=== PATIENT | female | born 1980 | race Caucasian/White ===

== ENCOUNTER 2019-02-16 07:25 | Inpatient (IN) ==
--- OUTSIDE RECORDS SUMMARY | 2019-02-16 07:27 | External Medical Summary | Continuity of Care Document ---
:1980 Author Name Jairon Neves, Provider Address Unavailable Unavailable , Care Team Providers Name Role Phone Case [email or web address] [email or web address] [email or web address], UNKNOWN Unavailable Unavailable Problems Active medical history not documented Allergies and Adverse Reactions Allergy history not documented Medications Medications not documented Procedures Procedures not documented Immunizations Immunizations not documented Plan of Treatment Planned Observations Planned Goals not documented Results No Known Results Results not documented Encounters Appointment; Primo Duenas DO 06-Jan-2009 11:30 Encounter Diagnosis: Problem not documented
--- OUTSIDE RECORDS SUMMARY | 2019-02-16 07:28 | External Medical Summary | Continuity of Care Document ---
:1980 Author Name Jairon Neves, Provider Address Unavailable Unavailable , Care Team Providers Name Role Phone Case [email or web address] [email or web address] [email or web address], UNKNOWN Unavailable Unavailable Problems Active medical [...]
[2019-02-16] MEDS ORDERED: LACTATED RINGER'S 1,000 ML IV ONE (07:46)
[2019-02-16] MEDS ORDERED: KETOROLAC (**for OR use only**) 30 MG/ML VIAL IV ONE (07:48)
--- NOTE | 2019-02-16 08:21 | XRay Report ---
XR chest 1V portable CLINICAL HISTORY: SEPSIS dyspnea COMPARISON STUDY: No previous studies for comparison. FINDINGS: The bones soft tissues and hemidiaphragms are normal. The cardiomediastinal silhouette is n ormal. The lungs are clear. The pulmonary vasculature is normal. IMPRESSION: Negative chest. ACT 112: Negative or not required by law. The above report was generated using voice recognition software. It may contain grammatical, syntax or spelling errors. Electronically signed by: Omar Rogers M.D. 02/16/2019 8:20 AM
[2019-02-16] MEDS ORDERED: KETOROLAC 30 MG/ML VIAL ONE (08:36)
[2019-02-16 08:39] LABS: Hematocrit (blood only) 32.8 % (37-47); Hemoglobin 11.2 g/dL (12.0-16.0); Mean Corpuscular Hemoglobin 30.7 pg (25-34); Mean Corpuscular Hgb Conc 34.1 g/dL (32-36); Mean Corpuscular Volume 89.9 fL (80-100); Mean Platelet Volume 8.7 fL (7.4-10.4); Platelet Count 254 K/uL (130-400); RDW Standard Deviation 46.5 fL (36.4-46.3); Red Blood Count 3.65 M/uL (4.2-5.4); White Blood Count 22.21 K/uL (4.8-10.8)
[2019-02-16 08:56] LABS: Appearance Urine Cloudy (Clear); Bacteria Urine Automated 4+ (Negative); Bilirubin Urine Negative (Negative); Blood Urine 3+ (Negative); Color Urine Yellow; Glucose Urine UA Negative (Negative); Ketones Urine Negative (Negative); Leukocyte Esterase Urine 2+ (Negative); Nitrite Urine Positive (Negative); Protein Urine 2+ (Negative); RBC Urine Automated >30 /hpf (0-4); Specific Gravity Urine 1.018 (1.000-1.030); Urobilinogen Urine Negative (Negative); WBC Urine Automated >30 /hpf (0-5)
[2019-02-16 08:57] LABS: iSTAT Creatinine 1.1 mg/dl (0.6-1.3); iSTAT Hemoglobin 11.6 g/dl (12.0-16.0); iSTAT Ionized Calcium 1.15 mmol/l (1.12-1.32)
[2019-02-16 08:59] LABS: Partial Thromboplastin Time 26.2 Seconds (21.0-31.0); Prothrombin Time 10.5 Seconds (9.0-12.0)
[2019-02-16 09:13] LABS: Alanine Aminotransferase 15 U/L (12-78); Albumin Level 2.4 gm/dl (3.4-5.0); Aspartate Aminotransferase 8 U/L (15-37); BUN Creatinine Ratio 16.7 (10-20); Blood Urea Nitrogen 19 mg/dl (7-18); Calcium 8.1 mg/dl (8.5-10.1); Carbon Dioxide 22 mmol/L (21-32); Chloride 108 mmol/L (98-107); Creatinine Clr Calc Pharmacy 65.1 ml/min; Est GFR (African American) 71.2; Est GFR (Non-African American) 61.4; Glucose 109 mg/dl (70-99); Magnesium 1.6 mg/dl (1.8-2.4); Potassium 3.1 mmol/L (3.5-5.1); Sodium 137 mmol/L (136-145)
[2019-02-16 09:19] LABS: Albumin Globulin Ratio 0.6 (0.9-2); Alkaline Phosphatase 136 U/L (45-117); Bilirubin,Total 0.5 mg/dl (0.2-1); Globulin 4.1 gm/dl (2.5-4.0); Total Protein 6.5 gm/dl (6.4-8.2); Troponin I < 0.015 ng/ml (0-0.045)
[2019-02-16 09:24] LABS: Influenza A virus by PCR Neg for Influ A (Neg); Influenza B virus by PCR Neg for Influ B (Neg)
[2019-02-16] MEDS ORDERED: IOVERSOL 100ml IV PRN (09:29)
[2019-02-16 09:41] LABS: Basophils # (auto) 0.01 K/uL (0-0.2); Eosinophils # (auto) 0.02 K/uL (0-0.5); Eosinophils % (auto) 0.1 %; Immature Granulocytes # (auto) 0.24 K/uL (0.00-0.02); Immature Granulocytes % (auto) 1.1 %; Lymphocytes # (auto) 0.82 K/uL (1.2-3.4); Lymphocytes % (auto) 3.7 %; Monocytes # (auto) 0.53 K/uL (0.11-0.59); Monocytes % (auto) 2.4 %; Neutrophils # (auto) 20.59 K/uL (1.4-6.5); Neutrophils % (auto) 92.7 %
[2019-02-16] MEDS ORDERED: cefTRIAXone SODIUM 1,000 MG/50 ML BAG IV STA (09:45)
--- NOTE | 2019-02-16 09:54 | CT Scan Report ---
CT SCAN OF THE CHEST, ABDOMEN, AND PELVIS WITH IV CONTRAST CLINICAL HISTORY: Dyspnea. Fever. Generalized abdominal pain. Back pain. COMPARISON STUDY: Chest x-ray dated 02/16/2019. Radiographs of the lumbar spine dated 613 and 14. TECHNIQUE: Following the IV administration of 93 of Optiray 320, CT scan of the chest, abdomen, and p rigo was performed from the thoracic inlet to the proximal femora. Images are reviewed in the axial, sagittal, and coronal planes. IV contrast was administered without complication. A dose lowering t echnique was utilized adhering to the principles of ALARA. CT DOSE: 902.03 mGy.cm FINDINGS: CHEST: Thyroid: Imaged portions of the thyroid gland are normal in size and attenuation. Thoracic aorta: The thoracic aorta is normal in caliber and demonstrates standard 3-vessel arch anato my. No dissection is seen. Pulmonary vasculature: The pulmonary trunk is normal in caliber. There are no filling defects identif ied in the central pulmonary vessels to indicate pulmonary embolus. Note that this examination was no t protocoled for evaluation of the pulmonary arteries. Heart: The heart is normal in size and without pericardial effusion. Lungs and pleural spaces: There is no airspace consolidation typical for pneumonia or pleural effusio n. The trachea and central airways are clear. Foci of atelectasis are present throughout both lungs. There are numerous ovoid low-attenuation posterior subpleural nodules identified in the thoracic deandre on bilaterally. These are seen on the left at T3-T4, T4-T5, T5-T6, and T6-T7. These are seen on the r ight at T5-T6, T6-T7, and T7-T8. The largest is on the left at the T5-T6 level, best seen on image #8 3 and measures 2.6 x 0.9 cm. Mediastinum: There is no mediastinal lymphadenopathy. Evelin: Clear. Axillae: There is no axillary lymphadenopathy. Bony thorax: No lytic or blastic lesions are identified. Soft tissues: A 1.3 cm sebaceous cyst is noted in the left upper back on image #51. ABDOMEN AND PELVIS: Liver: The contrast-enhanced liver is enlarged measuring 21.4 cm in length. The liver demonstrates di ffusely diminished attenuation consistent with hepatic steatosis. There is no intrahepatic or ductal dilatation. The hepatic veins and portal veins are patent. Gallbladder: Unremarkable. Spleen: The spleen is mildly enlarged measuring 14.0 cm in length. Pancreas: Unremarkable. Adrenal glands: Unremarkable. Kidneys: The contrast enhanced kidneys are normal in size and without hydronephrosis. Renal enhanceme nt is markedly heterogeneous bilaterally. There is significant bilateral perinephric and periureteric stranding. There are least 2 nonobstructing left renal calculi which measure up to 4 mm. No right re nal calculi are clearly seen on this contrast-enhanced examination. There are numerous (greater than 10) cortical hypodensities present within both kidneys measuring up to 1.9 cm. The largest are minima lly complex and do not meet criteria for simple cysts. Urothelial thickening and enhancement is ident ified within the renal collecting system bilaterally and involving both ureters. Abdominal vasculature: The abdominal aorta is normal in course and caliber. Bowel: There is no bowel obstruction. Mild fecal retention is noted in the colon. The appendix is we ll-visualized and normal. Peritoneum: There is no intraperitoneal free air or abdominal ascites. A naval piercing is noted. The re is a small fat-containing umbilical hernia. Lymphadenopathy: None. Pelvic viscera: The bladder wall is mildly thickened and there is pericystic inflammation. Question s eptated uterus. The adnexa are normal as visualized noting bilateral ovarian follicles. A moderate vo lume of free fluid is seen in the cul-de-sac. Skeletal structures: There is a mild chronic superior endplate compression deformity of L2. No lytic or blastic lesions are seen. IMPRESSION: 1. Findings are most consistent with cystitis and bilateral ascending urinary tract infection/pyelone phritis. 2. There are numerous (greater than 10) cortical hypodensities identified in both kidneys. These richy ure up to 1.9 cm, and although these may represent numerous and minimally complex cysts developing re nal abscesses would be impossible to exclude. Clinical correlation will be required. Follow-up with u rology is recommended. 3. Left-sided nephrolithiasis. 4. Hepatomegaly and hepatic steatosis. 5. Mild splenomegaly. 6. There is no airspace consolidation or pleural effusion. 7. There are numerous ovoid posterior subpleural soft tissue nodules identified in the thoracic regio n as above. The location and appearance is most typical for nerve sheath tumors such as neurofibromas or schwannomas. 8. A moderate volume of free fluid in the cul-de-sac is nonspecific and may be within physiologic mckee its. 9. Question septate uterus. 10. Additional findings as above. ACT 112: Positive. There are findings on this exam that require communication between the performing entity and the patient following Patient Test Result Information Act ([place] Act 112) guidelines. Electronically signed by: Jamie Garcia M.D. 02/16/2019 9:52 AM
[2019-02-16] MEDS ORDERED: POTASSIUM CHLORIDE 20 MEQ TABCR PO STA (10:26)
--- NOTE | 2019-02-16 10:27 | History & Physical Report ---
Date of Service February 16, 2019 Assessment & Plan (1) Pyelonephritis: This is a 39-year-old female with a PMH of chronic hepatitis C, mood disorder and history of IV drug abuse who presents with fever, chills and abdominal pain x10 days and was found to have acute pyelonephritis. -Temp of 37.9 C, normotensive, HR of 106, leukocytosis of 22 -Meets sepsis criteria per CMS but non-toxic in appearance, lactic acid negative, BP normal. Will monitor closely and expand empiric abx coverage if needed -UA grossly abnormal. Follow urine culture. Continue empiric Rocephin -CT abd/pelvis with findings are most consistent with cystitis and bilateral ascending urinary tract infection/pyelonephritis. There are numerous (greater than 10) cortical hypodensities identified in both kidneys. These measure up to 1.9 cm, and although these may represent numerous and minimally complex cysts developing renal abscesses would be impossible to exclude. Clinical correlation will be required. Follow-up with urology is recommended. -Will discuss with urology to consider inpatient consult vs close follow up in clinic -Continue IV fluids, pain control, antiemetics. Will avoid narcotic medications as much as possible due to h/o heroin abuse (2) Hypokalemia: Initial K of 3.1. Ordered for replacement -Continue to monitor with daily BMP (3) Recent URI: Prescribed a Z pack and prednisone taper 5 days ago, with last doses today -Lungs are clear on exam, CT chest negative, Flu A and B PCR is negative. No need to continue medications (4) Tobacco use disorder: 25 pack year history, smoking 1 PPD until recently. Currently on nicotine patch -Will continue. Interested in cessation, so counseling ordered History of Present Illness Chief Complaint: Fever, chills, abdominal pain Primary Care Provider: Fernando Gudino, This is a 39-year-old female with a PMH of chronic hepatitis C, mood disorder and history of IV drug abuse who presents with fever, chills and abdominal pain x10 days. Symptoms were present 10 days ago but then improved for a few days and returned 2 days ago. Endorses fever, chills, right upper quadrant pain that is stabbing and constant in nature with radiation wrapping around to her upper right back. Also endorses nausea and decreased appetite but denies vomiting. Was started on prednisone taper and azithromycin for presumed respiratory infection 5 days ago and has 1 dose left of each. Denies lightheadedness, visual changes, chest pain, palpitations, shortness of breath, change of urinary frequency or urgency, hematuria, pyuria, diarrhea or constipation. Was seen for an acute care visit yesterday was diagnosed with costochondritis and viral URI. Endorses history of heroin and cocaine use but not since 2013. Was also on methadone for time but no longer taking it. Endorses using daily ibuprofen but denies any other regular medication use. Allergies Allergy/AdvReac Type Severity Reaction Status Date / Time No Known Allergies Allergy Verified 02/16/19 08:06 Home Medications Home Medications Medication Instructions Recorded Confirmed Type azithromycin [Zithromax Z-Rosendo] 0 mg PO UD 02/16/19 02/16/19 History prednisone See Rx Instructions .ROUTE .COMPLEX 02/16/19 02/16/19 History Past Med/Surg History Medical History Hepatitis C (Chronic) Heroin abuse (Resolved) Mood disorder Surgical History H/O wrist surgery [place] teeth extracted (Resolved) Family History Other Stroke Social History Preferred Language: Romansh Communication Ability: Effective 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 Physical Exam Physical Exam: General Appearance: WD/WN, vitals as above, appears acutely ill with rigors, conversing easily, vital signs stable Head: normocephalic, atraumatic Eyes: normal inspection, PERRL, conjunctivae normal, anicteric sclerae ENT: external ear and nose normal, oropharynx normal Neck: trachea midline, no thyromegaly normal visual inspection Respiratory: normal respiratory effort, lungs clear to auscultation, no wheeze, rales, rhonchi. Normal insp/exp effort, no accessory muscle use Cardiovascular: regular rate, rhythm, no murmur, normal peripheral pulses. Vessels: no JVD or carotid bruit Chest: normal inspection of chest Abdomen/GI: normal bowel sounds, soft, RUQ pain, no guarding or hepatosplenomegaly : R CVA TTP. No L CVA TTP Extremities/Musculoskelatal: no cyanosis or clubbing, extremities motor strength 5/5 Neurologic: PERRL, EOMI, accommodation nl, no face palsy, no dysarthria, CN's II-XI intact bilaterally and moves all extremities Psychiatric: A+Ox3, anxious Skin: no rashes, normal color, warm/dry Results & Data Vital Signs (Past 12 Hours) Vital Signs Temp Pulse Pulse Resp BP BP Pulse Ox 02/16/19 10:04 89 16 110/62 97 02/16/19 07:28 37.9 C H 107 H 18 125/70 98 Laboratory Results Short CBC 02/16/19 Range/Units 08:17 WBC 22.21 H (4.8-10.8) K/uL Hgb 11.2 L (12.0-16.0) g/dL Hct 32.8 L (37-47) % Plt Count 254 (130-400) K/uL BMP 02/16/19 08:17 Sodium 137 Potassium 3.1 L Chloride 108 H Carbon Dioxide 22 BUN 19 H Creatinine 1.12 Glucose 109 H Calcium 8.1 L Cardiac Enzymes 02/16/19 Range/Units 08:17 Troponin I < 0.015 (0-0.045) ng/ml Liver Function 02/16/19 Range/Units 08:17 Total Bilirubin 0.5 (0.2-1) mg/dl AST 8 L (15-37) U/L ALT 15 (12-78) U/L Alkaline Phosphatase 136 H (45-117) U/L Albumin 2.4 L (3.4-5.0) gm/dl Urine 02/16/19 Range/Units 08:00 Urine Color Yellow Urine Appearance Cloudy A (Clear) Urine pH 5.0 (4.5-7.5) Ur Specific Lee 1.018 (1.000-1.030) Urine Protein 2+ H (Negative) Urine Glucose (UA) Negative (Negative) Diagnostic Findings CXR: IMPRESSION: Negative chest. CT chest/CT abd/pelvis: IMPRESSION: 1. Findings are most consistent with cystitis and bilateral ascending urinary tract infection/pyelonephritis. 2. There are numerous (greater than 10) cortical hypodensities identified in both kidneys. These measure up to 1.9 cm, and although these may represent numerous and minimally complex cysts developing renal abscesses would be impossible to exclude. Clinical correlation will be required. Follow-up with urology is recommended. 3. Left-sided nephrolithiasis. 4. Hepatomegaly and hepatic steatosis. 5. Mild splenomegaly. 6. There is no airspace consolidation or pleural effusion. 7. There are numerous ovoid posterior subpleural soft tissue nodules identified in the thoracic region as above. The location and appearance is most typical for nerve sheath tumors such as neurofibromas or schwannomas. 8. A moderate volume of free fluid in the cul-de-sac is nonspecific and may be within physiologic limits. 9. Question septate uterus. Code Status & VTE Plan VTE Prophylaxis Plan VTE Prophylaxis will be ordered: Yes Supervising Physician Co-Signing Physician Notes Pt was seen and examined. Agreed with Ruby BOLIVAR exam, assessment and plan. 39-year-old female with a PMH of chronic hepatitis C, mood disorder and history of IV drug abuse who presents with fever, chills and abdominal pain for the last few days. Pt said that she was seen at [facility] and was treated for URI where she was given prednisone and Zithromax. Pt said that she was seen by [facility] few months ago for tenderness around her mid lower abdomen/pelvis. She said that she had her period [address] abd/pelvis showed findings that are most consistent with cystitis and bilateral ascending urinary tract infection/pyelonephritis. There are numerous (greater than 10) cortical hypodensities identified in both kidneys. These measure up to 1.9 cm, and although these may represent numerous and minimally complex cysts developing renal abscesses would be impossible to exclude. WBC on admission 22K, Temp 37.9 and potassium 3. UA positive for leukocytes, nitrite and bacteria. Urine and blood cx collected in the ER. Received Rocephin IV 1g in the ER, will continue IV abx. Continue Pain management and IVF fluid. Monitor CBC and BMP. MD Shira
[2019-02-16] MEDS ORDERED: POLYETHYLENE (MIRALAX) 17 GM PACK PO PRN (11:21)
[2019-02-16] MEDS ORDERED: ACETAMINOPHEN 325 MG TAB PO PRN (11:21)
[2019-02-16] MEDS ORDERED: ONDANSETRON INJ 2 MG/ML 2 ML VIAL IV PRN (11:21)
[2019-02-16] MEDS: SODIUM CHLORIDE 0.9% 1000ML 1,000 ML IV SCH ×2 (12:08→20:23)
[2019-02-16] MEDS: ACETAMINOPHEN 500 MG TAB PO PRN ×2 (12:10→20:22)
--- NOTE | 2019-02-16 13:06 | Emergency Department Note ---
Entered by Rose Ramsey acting as a scribe for History of Present Illness General Chief complaint: Abdominal Pain Stated complaint: BACK PAIN,SICK SINCE LAST SAT BEEN TO [facility] Source: patient History of Present Illness Onset (ago): day(s) 10 Location: head (general) Pain Consistency: + other (persistent ) Maximum Pain Intensity: 10 Quality: + other (weakness) Associated symptoms: + chest pain, + cough, + fever/chills (now resolved), + loss of appetite, + shortness of breath and + other (positive feels like "lungs are burning"; positive low back pain; positive runny nose; positive hoarse voice) Treatments prior to arrival: other (Zithromax; Prednisone) The patient is a 39 year old female who presents to the Emergency Room with complaints of persistent weakness that began last Friday, 10 days prior to arrival. The patient states that she had fevers and chills at the beginning, but states that these resolved by [place], 6 days ago. The patient states that during this time she has felt like her "lungs are burning". She states that she began having chest pain and back pain 6 days ago. The patient states that her low back pain is exacerbated with movement. The patient states that she has had loss of appetite during this time. She reports cough, runny nose, hoarse voice, and shortness of breath during this time. The patient states that she saw her PCP 4 days ago and was given Zithromax and Prednisone. She denies urinary symptoms and weakness or numbness in her arms and legs. The patient admits to IV drug use 4 years ago. Home Medications Home Medications Medication Instructions Recorded Confirmed Type azithromycin [Zithromax Z-Rosendo] 0 mg PO UD 02/16/19 02/16/19 History prednisone See Rx Instructions .ROUTE .COMPLEX 02/16/19 02/16/19 History Allergies Allergy/AdvReac Type Severity Reaction Status Date / Time No Known Allergies Allergy Verified 02/16/19 08:06 Past Med/Surg History Medical History Hepatitis C (Chronic) Heroin abuse (Resolved) Mood disorder Surgical History H/O wrist surgery [place] teeth extracted (Resolved) Family History Other Stroke Social History Preferred Language: Italian Communication Ability: Effective Label Coder Required: No Beliefs That Will Affect Care: None Current Living Situation: Family and Significant Other Other Information That Helps Us Care for You: No Feels Safe at Home: Yes Safety Concerns: Feels Safe At This Time Smoking Status: Current every day smoker Tobacco Type: cigarettes ; Cigarettes Per Day: 20 ; Do You Dip or Chew Tobacco: No ; Second Hand Exposure: No ; Tobacco Cessation Education Requested by Patient: No Hx Alcohol Use: No Hx Substance Use: No Review of Systems See HPI for pertinent positives & negatives. and A total of 10 systems reviewed and were otherwise negative Physical Exam Vital Signs Vital Signs - 24 hr 02/16/19 07:28 02/16/19 10:04 Temperature 37.9 C H Temperature Source Oral Pulse Rate 107 H Pulse Rate [Finger] 89 Respiratory Rate 18 16 Respiratory Effort / Characteristics Non-Labored Respiratory Depth Normal Blood Pressure 125/70 Blood Pressure [Right Arm] 110/62 Blood Pressure Mean 88 Blood Pressure Mean [Right Arm] 78 Blood Pressure Position Sitting Pulse Oximetry 98 97 Oxygen Delivery Method Room Air Sepsis Recent Fever Within 48 Hours Yes Sepsis New/Unexplained Change in Mental Status No Sepsis Action Taken by Nursing No Action Required GENERAL: Sitting up in bed, disheveled, nontoxic, no acute distress, with a hoarse voice, and intermittent cough. EYE EXAM: normal conjunctiva OROPHARYNX: no exudate, no erythema, lips, buccal mucosa, and tongue normal and mucous membranes are moist NECK: supple, no nuchal rigidity, no adenopathy, non-tender LUNGS: Clear to auscultation. Normal chest wall mechanics HEART: Tachycardic rate, regular rhythm. No murmurs, S1 normal and S2 normal ABDOMEN: abdomen soft, minimal tenderness in the epigastric region, normo-active bowel sounds, no masses, no rebound or guarding. BACK: Bilateral paraspinal tenderness in the lumbar region. Back is symmetrical on inspection and there is no deformity, no midline tenderness, no CVA tenderness. SKIN: no rashes and no bruising UPPER EXTREMITIES: upper extremities are grossly normal. LOWER EXTREMITIES: No pitting edema. NEURO EXAM: Normal sensorium, cranial nerves II-XII grossly intact, normal speech, no gross weakness of arms, no gross weakness of legs. Course Course ED COURSE: Vital signs were reviewed and showed tachycardia. The patients medical record was reviewed The above diagnostic studies were performed and reviewed. ED treatments and interventions as stated above. 0739: The patient was evaluated in room A12B. A complete history and physical examination was performed. 0945: I checked on and updated the patient. 1019: Upon reevaluation, the patient is .I discussed my findings with the patient and she understands and agrees with the treatment plan. Based on the patients age, coexisting illnesses, exam and lab findings the decision to treat as an inpatient was made. The patient remained stable while under my care. 1020: The patient will be evaluated for further management. I discussed the case with Dr. Penny Hospitalist who accepts the patient for further evaluation. Administered Medications Acetaminophen (Tylenol) 1,000 mg PO Q8H PRN PRN Reason: pain or fever Stop: 03/18/19 11:57 Last Admin: 02/16/19 12:10 Dose: 1,000 mg Documented by: [id number] Sodium Chloride (Nss 1000ml) 1,000 mls @ 125 mls/hr IV .Q8H VANI Stop: 03/18/19 11:49 Last Admin: 02/16/19 12:08 Dose: 125 mls/hr Documented by: [id number] Discontinued Medications Lactated Ringer's (Lr) 1,000 mls @ 999 mls/hr IV .Q1H1M ONE Stop: 02/16/19 08:46 Last Infusion: 02/16/19 09:46 Dose: 0 mls/hr Documented by: [id number] Admin: 02/16/19 08:43 Dose: 999 mls/hr Documented by: [id number] Ceftriaxone Sodium (Rocephin) 1,000 mg in 50 mls @ 100 mls/hr IV NOW STA Stop: 02/16/19 10:14 Last Infusion: 02/16/19 10:31 Dose: 0 mls/hr Documented by: [id number] Admin: 02/16/19 10:02 Dose: 100 mls/hr Documented by: [id number] Ioversol (Optiray 320 100ml) 93 ml IV ONCE PRN PRN Reason: Interaction Checking Stop: 02/20/19 09:28 Last Admin: 02/16/19 09:30 Dose: 93 ml Documented by: [id number] Ketorolac Tromethamine (Toradol (For Or Use Only)) 30 mg IV ONE ONE Stop: 02/16/19 07:49 Last Admin: 02/16/19 08:43 Dose: Not Given Documented by: [id number] Ketorolac Tromethamine (Toradol) Confirm Administered Dose 30 mg .ROUTE .STK-MED ONE Stop: 02/16/19 08:37 Last Admin: 02/16/19 08:43 Dose: 30 mg Documented by: [id number] Potassium Chloride (Klor-Con M20) 40 meq PO NOW STA Stop: 02/16/19 10:27 Last Admin: 02/16/19 11:13 Dose: 40 meq Documented by: [id number] Medical Decision Making Differential Diagnosis Differential diagnosis includes etiologies such as sepsis, UTI, pneumonia, metabolic, electrolyte abnormalities, cardiac sources, intracerebral event, toxicologic, neurologic, as well as others were entertained. Medical Records Attestation: I reviewed the patient's medical records. Home Medications Current Medication List: was personally reviewed by me Laboratory Data Result diagrams: 02/16/19 08:17 02/16/19 08:17 Lab Results 02/16/19 02/16/19 02/16/19 Range/Units 08:00 08:17 08:17 WBC 22.21 H (4.8-10.8) K/uL RBC 3.65 L (4.2-5.4) M/uL Hgb 11.2 L (12.0-16.0) g/dL POC Hgb (12.0-16.0) g/dl Hct 32.8 L (37-47) % POC Hct (37-47) % MCV 89.9 (80-100) fL MCH 30.7 (25-34) pg MCHC 34.1 (32-36) g/dL RDW Std Deviation 46.5 H (36.4-46.3) fL RDW Coeff of Erlinda 14.0 (11.5-14.5) % Plt Count 254 (130-400) K/uL MPV 8.7 (7.4-10.4) fL Immature Gran % (Auto) 1.1 % Neut % (Auto) 92.7 % Lymph % (Auto) 3.7 % [place] % (Auto) 2.4 % Eos % (Auto) 0.1 % Baso % (Auto) 0.0 % Immature Gran # (Auto) 0.24 H (0.00-0.02) K/uL Neut # (Auto) 20.59 H (1.4-6.5) K/uL Lymph # (Auto) 0.82 L (1.2-3.4) K/uL [place] # (Auto) 0.53 (0.11-0.59) K/uL Eos # (Auto) 0.02 (0-0.5) K/uL Baso # (Auto) 0.01 (0-0.2) K/uL PT 10.5 (9.0-12.0) Seconds INR 1.0 (0.9-1.1) APTT 26.2 (21.0-31.0) Seconds PTT Ratio 1.0 POC Sodium (135-144) mEq/L Sodium (136-145) mmol/L POC Potassium (3.3-5.0) mEq/L Potassium (3.5-5.1) mmol/L POC Chloride (101-112) mEq/L Chloride (98-107) mmol/L Carbon Dioxide (21-32) mmol/L POC Total CO2 (24-31) mEq/l Anion Gap (3-11) POC Anion Gap (16-25) mmol/L POC BUN (7-18) mg/dl BUN (7-18) mg/dl Creatinine (0.6-1.2) mg/dl POC Creatinine (0.6-1.3) mg/dl Est Cr Clr Drug Dosing ml/min Est GFR ( Amer) Est GFR (Non-Af Amer) BUN/Creatinine Ratio (10-20) Glucose (70-99) mg/dl POC Glucose (other) (70-99) mg/dl Lactate (0.4-2.0) mmol/L Calcium (8.5-10.1) mg/dl POC Ioniz Calcium Jerald (1.12-1.32) mmol/l Magnesium (1.8-2.4) mg/dl Total Bilirubin (0.2-1) mg/dl AST (15-37) U/L ALT (12-78) U/L Alkaline Phosphatase (45-117) U/L Troponin I (0-0.045) ng/ml Total Protein (6.4-8.2) gm/dl Albumin (3.4-5.0) gm/dl Globulin (2.5-4.0) gm/dl Albumin/Globulin Ratio (0.9-2) Urine Color Yellow Urine Appearance Cloudy A (Clear) Urine pH 5.0 (4.5-7.5) Ur Specific Dozier 1.018 (1.000-1.030) Urine Protein 2+ H (Negative) Urine Glucose (UA) Negative (Negative) Urine Ketones Negative (Negative) Urine Blood 3+ H (Negative) Urine Nitrite Positive A (Negative) Urine Bilirubin Negative (Negative) Urine Urobilinogen Negative (Negative) Ur Leukocyte Esterase 2+ H (Negative) Urine WBC (Auto) >30 H (0-5) /hpf Urine RBC (Auto) >30 H (0-4) /hpf U Hyaline Cast (Auto) 1-5 (0-5) /lpf U Epithel Cells (Auto) 10-20 H (0-5) /lpf Urine Bacteria (Auto) 4+ H (Negative) Influenza Type A (PCR) (Neg) Influenza Type B (PCR) (Neg) 02/16/19 02/16/19 02/16/19 Range/Units 08:17 08:25 08:40 WBC (4.8-10.8) K/uL RBC (4.2-5.4) M/uL Hgb (12.0-16.0) g/dL POC Hgb (12.0-16.0) g/dl Hct (37-47) % POC Hct (37-47) % MCV (80-100) fL MCH (25-34) pg MCHC (32-36) g/dL RDW Std Deviation (36.4-46.3) fL RDW Coeff of Erlinda (11.5-14.5) % Plt Count (130-400) K/uL MPV (7.4-10.4) fL Immature Gran % (Auto) % Neut % (Auto) % Lymph % (Auto) % [place] % (Auto) % Eos % (Auto) % Baso % (Auto) % Immature Gran # (Auto) (0.00-0.02) K/uL Neut # (Auto) (1.4-6.5) K/uL Lymph # (Auto) (1.2-3.4) K/uL [place] # (Auto) (0.11-0.59) K/uL Eos # (Auto) (0-0.5) K/uL Baso # (Auto) (0-0.2) K/uL PT (9.0-12.0) Seconds INR (0.9-1.1) APTT (21.0-31.0) Seconds PTT Ratio POC Sodium (135-144) mEq/L Sodium 137 (136-145) mmol/L POC Potassium (3.3-5.0) mEq/L Potassium 3.1 L (3.5-5.1) mmol/L POC Chloride (101-112) mEq/L Chloride 108 H (98-107) mmol/L Carbon Dioxide 22 (21-32) mmol/L POC Total CO2 (24-31) mEq/l Anion Gap 7.0 (3-11) POC Anion Gap (16-25) mmol/L POC BUN (7-18) mg/dl BUN 19 H (7-18) mg/dl Creatinine 1.12 (0.6-1.2) mg/dl POC Creatinine (0.6-1.3) mg/dl Est Cr Clr Drug Dosing 65.1 ml/min Est GFR ( Amer) 71.2 Est GFR (Non-Af Amer) 61.4 BUN/Creatinine Ratio 16.7 (10-20) Glucose 109 H (70-99) mg/dl POC Glucose (other) (70-99) mg/dl Lactate 1.2 (0.4-2.0) mmol/L Calcium 8.1 L (8.5-10.1) mg/dl POC Ioniz Calcium Jerald (1.12-1.32) mmol/l Magnesium 1.6 L (1.8-2.4) mg/dl Total Bilirubin 0.5 (0.2-1) mg/dl AST 8 L (15-37) U/L ALT 15 (12-78) U/L Alkaline Phosphatase 136 H (45-117) U/L Troponin I < 0.015 (0-0.045) ng/ml Total Protein 6.5 (6.4-8.2) gm/dl Albumin 2.4 L (3.4-5.0) gm/dl Globulin 4.1 H (2.5-4.0) gm/dl Albumin/Globulin Ratio 0.6 L (0.9-2) Urine Color Urine Appearance (Clear) Urine pH (4.5-7.5) Ur Specific Dozier (1.000-1.030) Urine Protein (Negative) Urine Glucose (UA) (Negative) Urine Ketones (Negative) Urine Blood (Negative) Urine Nitrite (Negative) Urine Bilirubin (Negative) Urine Urobilinogen (Negative) Ur Leukocyte Esterase (Negative) Urine WBC (Auto) (0-5) /hpf Urine RBC (Auto) (0-4) /hpf U Hyaline Cast (Auto) (0-5) /lpf U Epithel Cells (Auto) (0-5) /lpf Urine Bacteria (Auto) (Negative) Influenza Type A (PCR) Neg for Influ A (Neg) Influenza Type B (PCR) Neg for Influ B (Neg) 02/16/19 Range/Units 08:44 WBC (4.8-10.8) K/uL RBC (4.2-5.4) M/uL Hgb (12.0-16.0) g/dL POC Hgb 11.6 L (12.0-16.0) g/dl Hct (37-47) % POC Hct 34 L (37-47) % MCV (80-100) fL MCH (25-34) pg MCHC (32-36) g/dL RDW Std Deviation (36.4-46.3) fL RDW Coeff of Erlinda (11.5-14.5) % Plt Count (130-400) K/uL MPV (7.4-10.4) fL Immature Gran % (Auto) % Neut % (Auto) % Lymph % (Auto) % [place] % (Auto) % Eos % (Auto) % Baso % (Auto) % Immature Gran # (Auto) (0.00-0.02) K/uL Neut # (Auto) (1.4-6.5) K/uL Lymph # (Auto) (1.2-3.4) K/uL [place] # (Auto) (0.11-0.59) K/uL Eos # (Auto) (0-0.5) K/uL Baso # (Auto) (0-0.2) K/uL PT (9.0-12.0) Seconds INR (0.9-1.1) APTT (21.0-31.0) Seconds PTT Ratio POC Sodium 139 (135-144) mEq/L Sodium (136-145) mmol/L POC Potassium 3.0 L (3.3-5.0) mEq/L Potassium (3.5-5.1) mmol/L POC Chloride 104 (101-112) mEq/L Chloride (98-107) mmol/L Carbon Dioxide (21-32) mmol/L POC Total CO2 25 (24-31) mEq/l Anion Gap (3-11) POC Anion Gap 14.0 L (16-25) mmol/L POC BUN 19 H (7-18) mg/dl BUN (7-18) mg/dl Creatinine (0.6-1.2) mg/dl POC Creatinine 1.1 (0.6-1.3) mg/dl Est Cr Clr Drug Dosing ml/min Est GFR ( Amer) Est GFR (Non-Af Amer) BUN/Creatinine Ratio (10-20) Glucose (70-99) mg/dl POC Glucose (other) 107 H (70-99) mg/dl Lactate (0.4-2.0) mmol/L Calcium (8.5-10.1) mg/dl POC Ioniz Calcium Jerald 1.15 (1.12-1.32) mmol/l Magnesium (1.8-2.4) mg/dl Total Bilirubin (0.2-1) mg/dl AST (15-37) U/L ALT (12-78) U/L Alkaline Phosphatase (45-117) U/L Troponin I (0-0.045) ng/ml Total Protein (6.4-8.2) gm/dl Albumin (3.4-5.0) gm/dl Globulin (2.5-4.0) gm/dl Albumin/Globulin Ratio (0.9-2) Urine Color Urine Appearance (Clear) Urine pH (4.5-7.5) Ur Specific [place]zier (1.000-1.030) Urine Protein (Negative) Urine Glucose (UA) (Negative) Urine Ketones (Negative) Urine Blood (Negative) Urine Nitrite (Negative) Urine Bilirubin (Negative) Urine Urobilinogen (Negative) Ur Leukocyte Esterase (Negative) Urine WBC (Auto) (0-5) /hpf Urine RBC (Auto) (0-4) /hpf U Hyaline Cast (Auto) (0-5) /lpf U Epithel Cells (Auto) (0-5) /lpf Urine Bacteria (Auto) (Negative) Influenza Type A (PCR) (Neg) Influenza Type B (PCR) (Neg) Imaging Data Radiologist's Impression: Radiology results as stated below per my review and the radiologist's interpretation: XR chest 1V portable CLINICAL HISTORY: SEPSIS dyspnea COMPARISON STUDY: No previous studies for comparison. FINDINGS: The bones soft tissues and hemidiaphragms are normal. The cardio mediastinal silhouette is normal. The lungs are clear. The pulmonary vasculature is normal. IMPRESSION: Negative chest. ACT 112: Negative or not required by law. The above report was generated using voice recognition software. It may contain grammatical, syntax or spelling errors. Electronically signed by: Omar Rogers M.D. 02/16/2019 8:[address] SCAN OF THE CHEST, ABDOMEN, AND PELVIS WITH IV CONTRAST CLINICAL HISTORY: Dyspnea. Fever. Generalized abdominal pain. Back pain. COMPARISON STUDY: Chest x-ray dated 02/16/2019. Radiographs of the lumbar spine dated 613 and 14. TECHNIQUE: Following the IV administration of 93 of Optiray 320, CT scan of the chest, abdomen, and pelvis was performed from the thoracic inlet to the proximal femora. Images are reviewed in the axial, sagittal, and coronal planes. IV contrast was administered without complication. A dose lowering technique was utilized adhering to the principles of ALARA. CT DOSE: 902.03 mGy.cm FINDINGS: CHEST: Thyroid: Imaged portions of the thyroid gland are normal in size and attenuation. Thoracic aorta: The thoracic aorta is normal in caliber and demonstrates stand lala 3-vessel arch anatomy. No dissection is seen. Pulmonary vasculature: The pulmonary trunk is normal in caliber. There are no filling defects identified in the central pulmonary vessels to indicate pulmonary embolus. Note that this examination was not protocoled for evaluation of the pulmonary arteries. Heart: The heart is normal in size and without pericardial effusion. Lungs and pleural spaces: There is no airspace consolidation typical for pneumonia or pleural effusion. The trachea and central airways are clear. Foci of atelectasis are present throughout both lungs. There are numerous ovoid low- attenuation posterior subpleural nodules identified in the thoracic region bilaterally. These are seen on the left at T3-T4, T4-T5, T5-T6, and T6-T7. These are seen on the right at T5-T6, T6-T7, and T7-T8. The largest is on the left at the T5-T6 level, best seen on image #83 and measures 2.6 x 0.9 cm. Mediastinum: There is no mediastinal lymphadenopathy. Evelin: Clear. Axillae: There is no axillary lymphadenopathy. Bony thorax: No lytic or blastic lesions are identified. Soft tissues: A 1.3 cm sebaceous cyst is noted in the left upper back on image #51. ABDOMEN AND PELVIS: Liver: The contrast-enhanced liver is enlarged measuring 21.4 cm in length. The liver demonstrates diffusely diminished attenuation consistent with hepatic steatosis. There is no intrahepatic or ductal dilatation. The hepatic veins and portal veins are patent. Gallbladder: Unremarkable. Spleen: The spleen is mildly enlarged measuring 14.0 cm in length. Pancreas: Unremarkable. Adrenal glands: Unremarkable. Kidneys: The contrast enhanced kidneys are normal in size and without hydronephrosis. Renal enhancement is markedly heterogeneous bilaterally. There is significant bilateral perinephric and periureteric stranding. There are least 2 nonobstructing left renal calculi which measure up to 4 mm. No right renal calculi are clearly seen on this contrast-enhanced examination. There are numerous (greater than 10) cortical hypodensities present within both kidneys measuring up to 1.9 cm. The largest are minimally complex and do not meet criteria for simple cysts. Urothelial thickening and enhancement is identified within the renal collecting system bilaterally and involving both ureters. Abdominal vasculature: The abdominal aorta is normal in course and caliber. Bowel: There is no bowel obstruction. Mild fecal retention is noted in the colon. The appendix is well-visualized and normal. Peritoneum: There is no intraperitoneal free air or abdominal ascites. A naval piercing is noted. There is a small fat-containing umbilical hernia. Lymphadenopathy: None. Pelvic viscera: The bladder wall is mildly thickened and there is pericystic inflammation. Question septated uterus. The adnexa are normal as visualized noting bilateral ovarian follicles. A moderate volume of free fluid is seen in the cul-de-sac. Skeletal structures: There is a mild chronic superior endplate compression deformity of L2. No lytic or blastic lesions are seen. IMPRESSION: 1. Findings are most consistent with cystitis and bilateral ascending urinary tract infection/pyelonephritis. 2. There are numerous (greater than 10) cortical hypodensities identified in both kidneys. These measure up to 1.9 cm, and although these may represent numerous and minimally complex cysts developing renal abscesses would be impossible to exclude. Clinical correlation will be required. Follow-up with urology is recommended. 3. Left-sided nephrolithiasis. 4. Hepatomegaly and hepatic steatosis. 5. Mild splenomegaly. 6. There is no airspace consolidation or pleural effusion. 7. There are numerous ovoid posterior subpleural soft tissue nodules identified in the thoracic region as above. The location and appearance is most typical for nerve sheath tumors such as neurofibromas or schwannomas. 8. A moderate volume of free fluid in the cul-de-sac is nonspecific and may be within physiologic limits. 9. Question septate uterus. 10. Additional findings as above. ACT 112: Positive. There are findings on this exam that require communication between the performing entity and the patient following Patient Test Result Information Act ([place] Act 112) guidelines. Electronically signed by: Jamie Garcia M.D. 02/16/2019 9:52 AM ECG Data Attestation: I personally reviewed and interpreted this ECG as follows: Indication: + chest pain Rate (beats per minute): 84 Rhythm: + sinus rhythm ECG Intervals/blocks: + Normal QT-c ECG [place]: + Normal ECG Findings: no PVCs Blood Pressure Blood Pressure Findings: Normal blood pressure MDM Narrative Patient is a 39-year-old female who presents the ER for fevers back pain muscle aches shaking and chills. IV was established blood work was obtained and showed leukocytosis of 22,000. Hemoglobin 11.2 thousand. INR was unremarkable. BMP with mild hypokalemia. Lactic acid was unremarkable. LFTs and magnesium and troponin were unremarkable. UA with nitrates white cells epithelials and bacteria. CT of the chest and abdomen pelvis shows pyelonephritis with questionable abscesses versus renal cyst. Influenza was unremarkable. Patient was given IV fluids and IV Rocephin. Updated bedside. Discussed with the hospitalist admitted for sepsis secondary to pyelonephritis. Do favor that the leukocytosis is a combination of the infection and steroids which were recently prescribed. Impression & Plan Sepsis, Pyelonephritis, Back pain Discharge Plan Visit Data *Final* Discharge Date/Time: 02/16/19 11:10 Chief Complaint: Abdominal Pain Stated Complaint: BACK PAIN,SICK SINCE LAST SAT BEEN TO [facility] Provider: David Asher Discharge Problem: Sepsis, Pyelonephritis, Back pain Patient Disposition: Admitted As Inpatient Discharge Instructions Interventions: ED Discharge Assessment Last Done: 02/16/19 11:10 The scribe's documentation has been prepared under my direction and personally reviewed by me in its entirety. I confirm that the note above accurately reflects all work, treatment, procedures, and medical decision making performed by me.
[2019-02-16] MEDS: KETOROLAC TROMETHAMINE 15 MG/ML VIAL IV PRN ×2 (16:56→23:02)
[2019-02-16 17:36] LABS: Amphetamines+Metham, Urine Neg (Neg); Barbiturates, Urine Neg (Neg); Benzodiazepine, Urine Neg (Neg); Cocaine, Urine Neg (Neg); MDMA (Ecstacy), Urine Neg (Neg); Methadone, Urine Neg (Neg); Opiate, Urine Neg (Neg); Phencyclidine, Urine Neg (Neg)
[2019-02-17] MEDS: SODIUM CHLORIDE 0.9% 1000ML 1,000 ML IV SCH ×3 (03:56→20:59)
[2019-02-17] MEDS: ACETAMINOPHEN 500 MG TAB PO PRN ×3 (04:28→21:42)
[2019-02-17 06:38] LABS: Hematocrit (blood only) 28.7 % (37-47); Hemoglobin 9.8 g/dL (12.0-16.0); Mean Corpuscular Hemoglobin 30.3 pg (25-34); Mean Corpuscular Hgb Conc 34.1 g/dL (32-36); Mean Corpuscular Volume 88.9 fL (80-100); Mean Platelet Volume 9.4 fL (7.4-10.4); Platelet Count 250 K/uL (130-400); RDW Coefficient of Variation 14.1 % (11.5-14.5); RDW Standard Deviation 45.9 fL (36.4-46.3); Red Blood Count 3.23 M/uL (4.2-5.4); White Blood Count 27.32 K/uL (4.8-10.8)
[2019-02-17 07:00] LABS: BUN Creatinine Ratio 13.3 (10-20); Calcium 7.5 mg/dl (8.5-10.1); Creatinine Clr Calc Pharmacy 61.2 ml/min; Est GFR (African American) 66.1; Est GFR (Non-African American) 57.1; Potassium 3.2 mmol/L (3.5-5.1)
--- NOTE | 2019-02-17 07:56 | Hospitalist Progress Note ---
Date of Service February 17, 2019 Assessment & Plan (1) Pyelonephritis: GN bacilli Bacteremia This is a 39-year-old female with a PMH of chronic hepatitis C, mood disorder and history of IV drug abuse who presents with fever, chills and abdominal pain x10 days and was found to have acute pyelonephritis. Blood cltx positive for GNR. -On admission: Temp of 37.9 C, normotensive, HR of 106, leukocytosis of 22K -Meets sepsis criteria per CMS but non-toxic in appearance, lactic acid negative, BP normal. Will monitor closely and expand empiric abx coverage if needed -UA grossly abnormal. Urine culture - positive for GNR, Continue empiric Rocephin but increase to 2g -CT abd/pelvis with findings are most consistent with cystitis and bilateral ascending urinary tract infection/pyelonephritis. There are numerous (greater than 10) cortical hypodensities identified in both kidneys. These measure up to 1.9 cm, and although these may represent numerous and minimally complex cysts developing renal abscesses would be impossible to exclude. Clinical correlation will be required. Follow-up with urology is recommended. - urology consulted - Blood cltx positive for GNR, will increase Rocephin to 2g, cont. to closely monitor, will order Echo to r/o endocarditis, will repeat blood cltx - Continue IV fluids, pain control, antiemetics. Will avoid narcotic medications as much as possible due to h/o heroin abuse - has lower and mid back pain b/l, will provide lidocaine patch (2) Hypokalemia: - replete and monitor - goal K~4 Hypomagnesemia - replete and monitor -goal Mag ~2 Anemia - normocytic, Hgb 11.2 on admission - seems to have anemia of chronic disease - now Hgb decreased likely secondary to IVF/ dilutional - will cont. to monitor (3) Recent URI: Prescribed a Z pack and prednisone taper 5 days ago, with last doses today -Lungs are clear on exam, CT chest negative, Flu A and B PCR is negative. No need to continue medications (4) Tobacco use disorder: 25 pack year history, smoking 1 PPD until recently. Currently on nicotine patch -Will continue. Interested in cessation, so counseling ordered Subjective No acute events overnight. Pt is laying in bed, in NAD. Says that she has back pain (mid back L and R), nausea is better now. feels mild subj. fevers. Ambulates. No chest pain, shortness of breath. Bacteremia - Gram negat. yolanda. (increased ceftriaxone to 2 g) Echo ordered Review of Systems Review of Systems: All systems reviewed & are unremarkable except as noted in HPI & below Constitutional: + fever, + chills and + body aches Respiratory: no cough, no dyspnea and no pain on inspiration Cardiovascular: no chest pain and no palpitations Gastrointestinal: + nausea; no abdominal pain and no vomiting Physical Exam Physical Exam: General Appearance: young female laying in bed, ill appearing in no acute resp. distress Head: normocephalic, atraumatic Eyes: normal inspection, PERRL, EOMI, conjunctivae normal, anicteric sclerae ENT: external ear and nose normal, oropharynx normal Neck: trachea midline, no thyromegaly normal visual inspection Respiratory: normal respiratory effort, lungs clear to auscultation, no wheeze, rales, rhonchi Cardiovascular: regular rate, rhythm, no murmur, normal peripheral pulses. Vessels: no JVD or carotid bruit, mild pedal edema b/l Chest: normal inspection of chest Abdomen/GI: normal bowel sounds, soft, mildly tender to palp. in upper quadrants, mildly distended : CVA tenderness b/l Back: paraspinal tenderness to palp. b/l Extremities/MSK: no cyanosis or clubbing, extremities motor strength 5/5, moves all 4 extrem. spontaneously Neurologic: PERRL, EOMI, accommodation nl, no face palsy, no dysarthria, CN's II-XI intact bilaterally and moves all extremities Psychiatric: A+Ox3, euthymic Skin: no rashes, normal color, warm/dry Results & Data Vital Signs (Past 12 Hours) Vital Signs Temp Pulse Resp BP Pulse Ox 02/17/19 07:04 37.6 C H 77 20 115/69 95 02/16/19 23:52 37.2 C 83 20 108/66 95 02/16/19 20:26 37.4 C Laboratory Results 02/17/19 02/17/19 02/16/19 Range/Units 06:09 06:09 17:10 WBC 27.32 H (4.8-10.8) K/uL RBC 3.23 L (4.2-5.4) M/uL Hgb 9.8 L (12.0-16.0) g/dL POC Hgb (12.0-16.0) g/dl Hct 28.7 L (37-47) % POC Hct (37-47) % MCV 88.9 (80-100) fL MCH 30.3 (25-34) pg MCHC 34.1 (32-36) g/dL RDW Std Deviation 45.9 (36.4-46.3) fL RDW Coeff of Erlinda 14.1 (11.5-14.5) % Plt Count 250 (130-400) K/uL MPV 9.4 (7.4-10.4) fL Immature Gran % (Auto) % Neut % (Auto) % Lymph % (Auto) % Crisp % (Auto) % Eos % (Auto) % Baso % (Auto) % Immature Gran # (Auto) (0.00-0.02) K/uL Neut # (Auto) (1.4-6.5) K/uL Lymph # (Auto) (1.2-3.4) K/uL Crisp # (Auto) (0.11-0.59) K/uL Eos # (Auto) (0-0.5) K/uL Baso # (Auto) (0-0.2) K/uL PT (9.0-12.0) Seconds INR (0.9-1.1) APTT (21.0-31.0) Seconds PTT Ratio POC Sodium (135-144) mEq/L Sodium 138 (136-145) mmol/L POC Potassium (3.3-5.0) mEq/L Potassium 3.2 L (3.5-5.1) mmol/L POC Chloride (101-112) mEq/L Chloride 111 H (98-107) mmol/L Carbon Dioxide 22 (21-32) mmol/L POC Total CO2 (24-31) mEq/l Anion Gap 5.0 (3-11) POC Anion Gap (16-25) mmol/L POC BUN (7-18) mg/dl BUN 16 (7-18) mg/dl Creatinine 1.19 (0.6-1.2) mg/dl POC Creatinine (0.6-1.3) mg/dl Est Cr Clr Drug Dosing 61.2 ml/min Est GFR ( Amer) 66.1 Est GFR (Non-Af Amer) 57.1 BUN/Creatinine Ratio 13.3 (10-20) Glucose 105 H (70-99) mg/dl POC Glucose (other) (70-99) mg/dl Lactate (0.4-2.0) mmol/L Calcium 7.5 L (8.5-10.1) mg/dl POC Ioniz Calcium Jerald (1.12-1.32) mmol/l Magnesium (1.8-2.4) mg/dl Total Bilirubin (0.2-1) mg/dl AST (15-37) U/L ALT (12-78) U/L Alkaline Phosphatase (45-117) U/L Troponin I (0-0.045) ng/ml Total Protein (6.4-8.2) gm/dl Albumin (3.4-5.0) gm/dl Globulin (2.5-4.0) gm/dl Albumin/Globulin Ratio (0.9-2) Urine Color Urine Appearance (Clear) Urine pH (4.5-7.5) Ur Specific [place] (1.000-1.030) Urine Protein (Negative) Urine Glucose (UA) (Negative) Urine Ketones (Negative) Urine Blood (Negative) Urine Nitrite (Negative) Urine Bilirubin (Negative) Urine Urobilinogen (Negative) Ur Leukocyte Esterase (Negative) Urine WBC (Auto) (0-5) /hpf Urine RBC (Auto) (0-4) /hpf U Hyaline Cast (Auto) (0-5) /lpf U Epithel Cells (Auto) (0-5) /lpf Urine Bacteria (Auto) (Negative) Urine Opiates Screen Neg (Neg) Ur Methadone, Qual Neg (Neg) Urine Barbiturates Neg (Neg) Ur Phencyclidine (PCP) Neg (Neg) U Amphetamin/Meth Scrn Neg (Neg) MDMA (Ecstasy) Screen Neg (Neg) U Benzodiazepines Scrn Neg (Neg) Ur Cocaine Metabolite Neg (Neg) U Marijuana (THC) Screen Neg (Neg) Influenza Type A (PCR) (Neg) Influenza Type B (PCR) (Neg) 02/16/19 02/16/19 02/16/19 Range/Units 08:44 08:40 08:25 WBC (4.8-10.8) K/uL RBC (4.2-5.4) M/uL Hgb (12.0-16.0) g/dL POC Hgb 11.6 L (12.0-16.0) g/dl Hct (37-47) % POC Hct 34 L (37-47) % MCV (80-100) fL MCH (25-34) pg MCHC (32-36) g/dL RDW Std Deviation (36.4-46.3) fL RDW Coeff of Erlinda (11.5-14.5) % Plt Count (130-400) K/uL MPV (7.4-10.4) fL Immature Gran % (Auto) % Neut % (Auto) % Lymph % (Auto) % Crisp % (Auto) % Eos % (Auto) % Baso % (Auto) % Immature Gran # (Auto) (0.00-0.02) K/uL Neut # (Auto) (1.4-6.5) K/uL Lymph # (Auto) (1.2-3.4) K/uL Crisp # (Auto) (0.11-0.59) K/uL Eos # (Auto) (0-0.5) K/uL Baso # (Auto) (0-0.2) K/uL PT (9.0-12.0) Seconds INR (0.9-1.1) APTT (21.0-31.0) Seconds PTT Ratio POC Sodium 139 (135-144) mEq/L Sodium (136-145) mmol/L POC Potassium 3.0 L (3.3-5.0) mEq/L Potassium (3.5-5.1) mmol/L POC Chloride 104 (101-112) mEq/L Chloride (98-107) mmol/L Carbon Dioxide (21-32) mmol/L POC Total CO2 25 (24-31) mEq/l Anion Gap (3-11) POC Anion Gap 14.0 L (16-25) mmol/L POC BUN 19 H (7-18) mg/dl BUN (7-18) mg/dl Creatinine (0.6-1.2) mg/dl POC Creatinine 1.1 (0.6-1.3) mg/dl Est Cr Clr Drug Dosing ml/min Est GFR ( Amer) Est GFR (Non-Af Amer) BUN/Creatinine Ratio (10-20) Glucose (70-99) mg/dl POC Glucose (other) 107 H (70-99) mg/dl Lactate 1.2 (0.4-2.0) mmol/L Calcium (8.5-10.1) mg/dl POC Ioniz Calcium Jerald 1.15 (1.12-1.32) mmol/l Magnesium (1.8-2.4) mg/dl Total Bilirubin (0.2-1) mg/dl AST (15-37) U/L ALT (12-78) U/L Alkaline Phosphatase (45-117) U/L Troponin I (0-0.045) ng/ml Total Protein (6.4-8.2) gm/dl Albumin (3.4-5.0) gm/dl Globulin (2.5-4.0) gm/dl Albumin/Globulin Ratio (0.9-2) Urine Color Urine Appearance (Clear) Urine pH (4.5-7.5) Ur Specific [place] (1.000-1.030) Urine Protein (Negative) Urine Glucose (UA) (Negative) Urine Ketones (Negative) Urine Blood (Negative) Urine Nitrite (Negative) Urine Bilirubin (Negative) Urine Urobilinogen (Negative) Ur Leukocyte Esterase (Negative) Urine WBC (Auto) (0-5) /hpf Urine RBC (Auto) (0-4) /hpf U Hyaline Cast (Auto) (0-5) /lpf U Epithel Cells (Auto) (0-5) /lpf Urine Bacteria (Auto) (Negative) Urine Opiates Screen (Neg) Ur Methadone, Qual (Neg) Urine Barbiturates (Neg) Ur Phencyclidine (PCP) (Neg) U Amphetamin/Meth Scrn (Neg) MDMA (Ecstasy) Screen (Neg) U Benzodiazepines Scrn (Neg) Ur Cocaine Metabolite (Neg) U Marijuana (THC) Screen (Neg) Influenza Type A (PCR) Neg for Influ A (Neg) Influenza Type B (PCR) Neg for Influ B (Neg) 02/16/19 02/16/19 02/16/19 Range/Units 08:17 08:17 08:17 WBC 22.21 H (4.8-10.8) K/uL RBC 3.65 L (4.2-5.4) M/uL Hgb 11.2 L (12.0-16.0) g/dL POC Hgb (12.0-16.0) g/dl Hct 32.8 L (37-47) % POC Hct (37-47) % MCV 89.9 (80-100) fL MCH 30.7 (25-34) pg MCHC 34.1 (32-36) g/dL RDW Std Deviation 46.5 H (36.4-46.3) fL RDW Coeff of Erlinda 14.0 (11.5-14.5) % Plt Count 254 (130-400) K/uL MPV 8.7 (7.4-10.4) fL Immature Gran % (Auto) 1.1 % Neut % (Auto) 92.7 % Lymph % (Auto) 3.7 % Crisp % (Auto) 2.4 % Eos % (Auto) 0.1 % Baso % (Auto) 0.0 % Immature Gran # (Auto) 0.24 H (0.00-0.02) K/uL Neut # (Auto) 20.59 H (1.4-6.5) K/uL Lymph # (Auto) 0.82 L (1.2-3.4) K/uL Crisp # (Auto) 0.53 (0.11-0.59) K/uL Eos # (Auto) 0.02 (0-0.5) K/uL Baso # (Auto) 0.01 (0-0.2) K/uL PT 10.5 (9.0-12.0) Seconds INR 1.0 (0.9-1.1) APTT 26.2 (21.0-31.0) Seconds PTT Ratio 1.0 POC Sodium (135-144) mEq/L Sodium 137 (136-145) mmol/L POC Potassium (3.3-5.0) mEq/L Potassium 3.1 L (3.5-5.1) mmol/L POC Chloride (101-112) mEq/L Chloride 108 H (98-107) mmol/L Carbon Dioxide 22 (21-32) mmol/L POC Total CO2 (24-31) mEq/l Anion Gap 7.0 (3-11) POC Anion Gap (16-25) mmol/L POC BUN (7-18) mg/dl BUN 19 H (7-18) mg/dl Creatinine 1.12 (0.6-1.2) mg/dl POC Creatinine (0.6-1.3) mg/dl Est Cr Clr Drug Dosing 65.1 ml/min Est GFR ( Amer) 71.2 Est GFR (Non-Af Amer) 61.4 BUN/Creatinine Ratio 16.7 (10-20) Glucose 109 H (70-99) mg/dl POC Glucose (other) (70-99) mg/dl Lactate (0.4-2.0) mmol/L Calcium 8.1 L (8.5-10.1) mg/dl POC Ioniz Calcium Jerald (1.12-1.32) mmol/l Magnesium 1.6 L (1.8-2.4) mg/dl Total Bilirubin 0.5 (0.2-1) mg/dl AST 8 L (15-37) U/L ALT 15 (12-78) U/L Alkaline Phosphatase 136 H (45-117) U/L Troponin I < 0.015 (0-0.045) ng/ml Total Protein 6.5 (6.4-8.2) gm/dl Albumin 2.4 L (3.4-5.0) gm/dl Globulin 4.1 H (2.5-4.0) gm/dl Albumin/Globulin Ratio 0.6 L (0.9-2) Urine Color Urine Appearance (Clear) Urine pH (4.5-7.5) Ur Specific [place] (1.000-1.030) Urine Protein (Negative) Urine Glucose (UA) (Negative) Urine Ketones (Negative) Urine Blood (Negative) Urine Nitrite (Negative) Urine Bilirubin (Negative) Urine Urobilinogen (Negative) Ur Leukocyte Esterase (Negative) Urine WBC (Auto) (0-5) /hpf Urine RBC (Auto) (0-4) /hpf U Hyaline Cast (Auto) (0-5) /lpf U Epithel Cells (Auto) (0-5) /lpf Urine Bacteria (Auto) (Negative) Urine Opiates Screen (Neg) Ur Methadone, Qual (Neg) Urine Barbiturates (Neg) Ur Phencyclidine (PCP) (Neg) U Amphetamin/Meth Scrn (Neg) MDMA (Ecstasy) Screen (Neg) U Benzodiazepines Scrn (Neg) Ur Cocaine Metabolite (Neg) U Marijuana (THC) Screen (Neg) Influenza Type A (PCR) (Neg) Influenza Type B (PCR) (Neg) 02/16/19 Range/Units 08:00 WBC (4.8-10.8) K/uL RBC (4.2-5.4) M/uL Hgb (12.0-16.0) g/dL POC Hgb (12.0-16.0) g/dl Hct (37-47) % POC Hct (37-47) % MCV (80-100) fL MCH (25-34) pg MCHC (32-36) g/dL RDW Std Deviation (36.4-46.3) fL RDW Coeff of Erlinda (11.5-14.5) % Plt Count (130-400) K/uL MPV (7.4-10.4) fL Immature Gran % (Auto) % Neut % (Auto) % Lymph % (Auto) % Crisp % (Auto) % Eos % (Auto) % Baso % (Auto) % Immature Gran # (Auto) (0.00-0.02) K/uL Neut # (Auto) (1.4-6.5) K/uL Lymph # (Auto) (1.2-3.4) K/uL Crisp # (Auto) (0.11-0.59) K/uL Eos # (Auto) (0-0.5) K/uL Baso # (Auto) (0-0.2) K/uL PT (9.0-12.0) Seconds INR (0.9-1.1) APTT (21.0-31.0) Seconds PTT Ratio POC Sodium (135-144) mEq/L Sodium (136-145) mmol/L POC Potassium (3.3-5.0) mEq/L Potassium (3.5-5.1) mmol/L POC Chloride (101-112) mEq/L Chloride (98-107) mmol/L Carbon Dioxide (21-32) mmol/L POC Total CO2 (24-31) mEq/l Anion Gap (3-11) POC Anion Gap (16-25) mmol/L POC BUN (7-18) mg/dl BUN (7-18) mg/dl Creatinine (0.6-1.2) mg/dl POC Creatinine (0.6-1.3) mg/dl Est Cr Clr Drug Dosing ml/min Est GFR ( Amer) Est GFR (Non-Af Amer) BUN/Creatinine Ratio (10-20) Glucose (70-99) mg/dl POC Glucose (other) (70-99) mg/dl Lactate (0.4-2.0) mmol/L Calcium (8.5-10.1) mg/dl POC Ioniz Calcium Jerald (1.12-1.32) mmol/l Magnesium (1.8-2.4) mg/dl Total Bilirubin (0.2-1) mg/dl AST (15-37) U/L ALT (12-78) U/L Alkaline Phosphatase (45-117) U/L Troponin I (0-0.045) ng/ml Total Protein (6.4-8.2) gm/dl Albumin (3.4-5.0) gm/dl Globulin (2.5-4.0) gm/dl Albumin/Globulin Ratio (0.9-2) Urine Color Yellow Urine Appearance Cloudy A (Clear) Urine pH 5.0 (4.5-7.5) Ur Specific [place] 1.018 (1.000-1.030) Urine Protein 2+ H (Negative) Urine Glucose (UA) Negative (Negative) Urine Ketones Negative (Negative) Urine Blood 3+ H (Negative) Urine Nitrite Positive A (Negative) Urine Bilirubin Negative (Negative) Urine Urobilinogen Negative (Negative) Ur Leukocyte Esterase 2+ H (Negative) Urine WBC (Auto) >30 H (0-5) /hpf Urine RBC (Auto) >30 H (0-4) /hpf U Hyaline Cast (Auto) 1-5 (0-5) /lpf U Epithel Cells (Auto) 10-20 H (0-5) /lpf Urine Bacteria (Auto) 4+ H (Negative) Urine Opiates Screen (Neg) Ur Methadone, Qual (Neg) Urine Barbiturates (Neg) Ur Phencyclidine (PCP) (Neg) U Amphetamin/Meth Scrn (Neg) MDMA (Ecstasy) Screen (Neg) U Benzodiazepines Scrn (Neg) Ur Cocaine Metabolite (Neg) U Marijuana (THC) Screen (Neg) Influenza Type A (PCR) (Neg) Influenza Type B (PCR) (Neg) Diagnostic Findings CT chest/ abd/pelvis IMPRESSION: 1. Findings are most consistent with cystitis and bilateral ascending urinary tract infection/pyelonephritis. 2. There are numerous (greater than 10) cortical hypodensities identified in both kidneys. These measure up to 1.9 cm, and although these may represent numerous and minimally complex cysts developing renal abscesses would be impossible to exclude. Clinical correlation will be required. Follow-up with urology is recommended. 3. Left-sided nephrolithiasis. 4. Hepatomegaly and hepatic steatosis. 5. Mild splenomegaly. 6. There is no airspace consolidation or pleural effusion. 7. There are numerous ovoid posterior subpleural soft tissue nodules identified in the thoracic region as above. The location and appearance is most typical for nerve sheath tumors such as neurofibromas or schwannomas. 8. A moderate volume of free fluid in the cul-de-sac is nonspecific and may be within physiologic limits. 9. Question septate uterus. Medications Administered Current Inpatient Medications Acetaminophen (Tylenol) 1,000 mg PO Q8H PRN PRN Reason: pain or fever Stop: 03/18/19 11:57 Last Admin: 02/17/19 04:28 Dose: 1,000 mg Documented by: Ceftriaxone Sodium 1,000 mg/ (Dextrose) 50 mls @ 100 mls/hr IV Q24H [facility]; Protocol Stop: 02/27/19 08:59 Sodium Chloride (Nss 1000ml) 1,000 mls @ 125 mls/hr IV .Q8H [facility] Stop: 03/18/19 11:49 Last Admin: 02/17/19 03:56 Dose: 125 mls/hr Documented by: Ketorolac Tromethamine (Toradol) 15 mg IV Q6H PRN PRN Reason: Pain Stop: 02/18/19 10:23 Last Admin: 02/16/19 23:02 Dose: 15 mg Documented by: Miscellaneous (Remove Nicoderm Patch) 1 ea N/A DAILY@[id number] [facility] Stop: 03/20/19 08:58 Nicotine (Nicoderm Cq) 21 mg TD QAM [facility] Stop: 03/19/19 08:59 Ondansetron HCl (Zofran) 4 mg IV Q6H PRN PRN Reason: Nausea Stop: 03/18/19 11:20 Last Admin: 02/16/19 20:23 Dose: 4 mg Documented by: Polyethylene Glycol (Miralax Powder Packet) 17 gm PO DAILY PRN PRN Reason: Constipation Stop: 03/18/19 11:20 Tramadol HCl (Ultram) 50 mg PO Q6H PRN PRN Reason: Pain Stop: 03/18/19 12:31
[2019-02-17] MEDS ORDERED: POTASSIUM CHLORIDE 20 MEQ TABCR PO STA (08:05)
[2019-02-17] MEDS: KETOROLAC TROMETHAMINE 15 MG/ML VIAL IV PRN ×2 (08:26→18:26)
[2019-02-17] MEDS: NICOTINE 21 MG/24 HR TDSY TD SCH (08:30)
[2019-02-17] MEDS ORDERED: cefTRIAXone SODIUM 1,000 MG in DEXTROSE 5% 50 ML IV SCH (09:00)
[2019-02-17] MEDS ORDERED: cefTRIAXone SODIUM 2,000 MG in DEXTROSE 5% 50 ML IV SCH (09:00)
[2019-02-17] MEDS: POTASSIUM CHLORIDE / WTR 10 MEQ/100 ML PLCT IV SCH ×2 (09:34→10:39)
[2019-02-17] MEDS ORDERED: LIDOCAINE 5% 1 PATCH TD SCH (11:30)
[2019-02-17] MEDS ORDERED: bisacodyL 5 MG TABEC PO PRN (11:54)
--- NOTE | 2019-02-17 12:02 | Urology Consultation ---
Date of Consultation February 17, 2019 Assessment & Plan (1) Pyelonephritis: GN bacilli Bacteremia Patient likely experiencing bilateral severe pyelonephritis with bacteremia. Patient is on broad-spectrum antibiotics. Is being monitored closely. Discussed at length imaging results. Discussed criteria for abscess as well as management of abscess. Patient's largest is less than 2 cm and currently patient is afebrile though does have a significant white count. Is tolerating broad-spectrum antibiotics well. Discussed options including drainage. Discussed need for transfer in order to have percutaneous drainage placed. At this point patient is being managed well with IV antibiotics. Would recommend continuing this for the time being. We will continue to control. Will await full cultures and decide on course and length of IV antibiotic. Likely will need prolonged course. Discussed that 1 month of antibiotics is not uncommon to treat abscesses if this is what has developed. Discussed other possibilities. Discussed complex cyst and other issues. Discussed other concerns. Patient has no major risk factors for UTI or emptying issues. Does not appear to be passing any stones. Does have small stones bilaterally. Discussed further management options. We will continue to follow. Will likely need repeat imaging in the next 1 to 2 weeks to assess his lungs patient is improving with IV antibiotic management. Patient's complicated: Surgical history was reviewed and summarized as well as patient's imaging which was reviewed interpreted by myself. We will continue to follow History of Present Illness Attending Physician: Alfredo Velez MD History of Present Illness Consult for patient with acute pyelonephritis with UTI and severe fatigue and bilateral flank pain. Patient underwent CT scan. Has been found to have bacteremia on the culture. Patient has bilateral signs of perinephric stranding with bilateral small lesions within the kidney. Possibility of abscess cannot be ruled out. Largest lesion was approximately 1.9 cm. Multiple throughout the kidney. Patient has previously had minor urinary issues. Has not had major UTIs. Has previously not had major problems with stones or other problems. No strong family history of renal or other issues. Patient for the last week has had significant fatigue, ill feelings, sinus drainage and pressure, and general malaise. Was attributing this to a sinus infection or cold. Was on azithromycin for this but did not improve. Developed abdominal pain and fevers as well as sweating and ill feelings. Was seen in the ER and is now on broad-spectrum antibiotics for bacteremia and likely pyelonephritis. Back and flank pressure/pain into groin in waves bothersome but controlled Allergies Allergy/AdvReac Type Severity Reaction Status Date / Time No Known Allergies Allergy Verified 02/16/19 08:06 Home Medications Home Medications Medication Instructions Recorded Confirmed Type azithromycin [Zithromax Z-Rosendo] 0 mg PO UD 02/16/19 02/16/19 History prednisone See Rx Instructions .ROUTE .COMPLEX 02/16/19 02/16/19 History Patient History Medical History Hepatitis C (Chronic) Heroin abuse (Resolved) Mood disorder Surgical History H/O wrist surgery [place] teeth extracted (Resolved) Family History Other Stroke Social History Preferred Language: Filipino Communication Ability: Effective Director Market Intelligence Required: No Beliefs That Will Affect Care: None Current Living Situation: Family and Significant Other Other Information That Helps Us Care for You: No Feels Safe at Home: Yes Safety Concerns: Feels Safe At This Time Smoking Status: Current every day smoker Tobacco Type: cigarettes ; Cigarettes Per Day: 20 ; Do You Dip or Chew Tobacco: No ; Second Hand Exposure: No ; Tobacco Cessation Education Requested by Patient: No Hx Alcohol Use: No Hx Substance Use: No Review of Systems Review of Systems: All systems reviewed & are unremarkable except as noted in HPI & below Physical Exam Physical Exam: General: Alert in no acute distress. Fatigued HEENT: Normocephalic Atraumatic. Inspection normal. Cranial Nerves 2-12 Grossly intact. Normal inspection of face. Normal inspection of neck. Psychologic: Normal affect. Respiratory: Nonlabored. No use of accessory muscles. No tachypnea or dyspnea. Cardiovascular: No tachycardia Skin: [place] and Dry. No rashes or visible lesions. Extremities/Lymphatics: No edema Abdomen: Soft Non-distended. No rebound or guarding. Obese : No catheter in place Results & Data Vital Signs (Past 12 Hours) Vital Signs Temp Pulse Resp BP Pulse Ox 02/17/19 07:04 37.6 C H 77 20 115/69 95 PG Care Time/CCT Total # of Minutes Spent Total Time Spent with Patient: Total time spent is greater than 50% in coordination of care (as documented) at patient's floor/unit and/or counseling patient:
[2019-02-17] MEDS: LIDOCAINE 5% 1 PATCH TD SCH (12:30)
[2019-02-17] MEDS: MAGNESIUM SULFATE / D5W 1 GM/100 ML BAG IV ONE ×2 (12:31→14:22)
[2019-02-17] MEDS: TRAMADOL HCL 50 MG TABLET PO PRN ×2 (15:23→21:41)
[2019-02-17] MEDS ORDERED: COUGH DROP (SUGAR FREE) LOZ 24 LOZ/1 BOX BUCCAL ONE (23:38)
[2019-02-18] MEDS: KETOROLAC TROMETHAMINE 15 MG/ML VIAL IV PRN ×2 (03:14→08:52)
[2019-02-18] MEDS: SODIUM CHLORIDE 0.9% 1000ML 1,000 ML IV SCH ×2 (03:15→11:50)
[2019-02-18] MEDS: ACETAMINOPHEN 500 MG TAB PO PRN (07:36)
[2019-02-18 07:47] LABS: Hematocrit (blood only) 26.3 % (37-47); Hemoglobin 8.8 g/dL (12.0-16.0); Mean Corpuscular Hemoglobin 29.4 pg (25-34); Mean Corpuscular Hgb Conc 33.5 g/dL (32-36); Mean Platelet Volume 9.4 fL (7.4-10.4); Platelet Count 331 K/uL (130-400); RDW Coefficient of Variation 14.3 % (11.5-14.5); RDW Standard Deviation 46.5 fL (36.4-46.3); Red Blood Count 2.99 M/uL (4.2-5.4); White Blood Count 23.34 K/uL (4.8-10.8)
--- NOTE | 2019-02-18 07:59 | Urology Progress Note ---
Date of Service February 18, 2019 Assessment & Plan (1) Pyelonephritis: 39yoF with PMHx of chronic hepatitis C, mood disorder and history of IV drug abuse who presents with fever, chills and abdominal pain x10 days and was found to have acute pyelonephritis. CT imaging reviewed with Dr. Middleton, consistent with lobar nephronia UC&S and BCx growing Ecoli, sensitive to Ceftriaxone Okay to convert to PO (Ciprofloxacin) for at least 4 week course to treat bilateral pyelo, possible renal abscess. Repeat CT in 2 weeks with close outpatient followup. Thank you for allowing us to participate in the acute care of Ms. Hartley. Please reconsult us with additional questions, concerns or changes in patient status. Subjective 39yoF with PMHx of chronic hepatitis C, mood disorder and history of IV drug abuse who presents with fever, chills and abdominal pain x10 days and was found to have acute pyelonephritis. UC&S and BCx growing E.Coli Pt resting comfortably, easily arousable. States bilateral flank pain is somewhat improved. Denies LUTS, hematuria. Leukocytosis improving, afebrile x24 hours. Tolerating PO well. Review of Systems Review of Systems: All systems reviewed & are unremarkable except as noted in HPI & below Physical Exam Physical Exam: A&Ox3 Resp rate reg abd soft, nontender no LE edema Results & Data Vital Signs (Past 12 Hours) Vital Signs Temp Pulse Pulse Resp BP Pulse Ox 02/18/19 07:00 83 02/18/19 04:00 36.7 C 89 18 139/89 98 02/18/19 02:58 91 H 02/17/19 23:42 37.2 C 90 18 118/72 96 PG Care Time/CCT Total # of Minutes Spent Total Time Spent with Patient: Total time spent is greater than 50% in coordination of care (as documented) at patient's floor/unit and/or counseling patient:
[2019-02-18 08:11] LABS: BUN Creatinine Ratio 12.2 (10-20); Calcium 7.5 mg/dl (8.5-10.1); Creatinine Clr Calc Pharmacy 70.7 ml/min; Est GFR (African American) 75.2; Est GFR (Non-African American) 64.9; Magnesium 1.8 mg/dl (1.8-2.4); Potassium 3.9 mmol/L (3.5-5.1)
--- NOTE | 2019-02-18 08:43 | Hospitalist Progress Note ---
Date of Service February 18, 2019 Assessment & Plan (1) Pyelonephritis: E.coli Bacteremia This is a 39-year-old female with a PMH of chronic hepatitis C (s/p treatment?), mood disorder and history of IV drug abuse who presents with fever, chills and abdominal pain x10 days and was found to have acute pyelonephritis. Blood cltx positive for E.coli, sensitive to ceftriaxone and cipro). -On admission: Temp of 37.9 C, normotensive, HR of 106, leukocytosis of 22K -Meets sepsis criteria per CMS but non-toxic in appearance, lactic acid negative, BP normal. Will monitor closely and expand empiric abx coverage if needed -UA grossly abnormal. Urine culture - positive for E.coli, Was started on Rocephin, then increased to 2g yesterday (02/17/19) -CT abd/pelvis with findings are most consistent with cystitis and bilateral ascending urinary tract infection/pyelonephritis. There are numerous (greater than 10) cortical hypodensities identified in both kidneys. These measure up to 1.9 cm, and although these may represent numerous and minimally complex cysts developing renal abscesses would be impossible to exclude. Clinical correlation will be required. Follow-up with urology is recommended. - Urology consulted - recommend long-term Abx treatment, at least 6 weeks and follow up CT in 2 weeks - Blood cltx positive for E.coli, will switch Rocephin (2g), to Ciprofloxacin (given renal cysts and poss. small abscesses), cont. to closely monitor - Transthoracic Echo (02/17/2019) to r/o endocarditis, negative for vegetations - Repeat blood cltx - ngtd - Continue IV fluids, pain control, antiemetics. Will avoid narcotic medications as much as possible due to h/o heroin abuse - has lower and mid back pain b/l, will provide lidocaine patch (2) Hypokalemia: - replete and monitor - goal K~4 Hypomagnesemia - replete and monitor -goal Mag ~2 Anemia - normocytic, Hgb 11.2 on admission - seems to have anemia of chronic disease - now Hgb decreased likely secondary to IVF/ dilutional - will cont. to monitor (3) Recent URI: Prescribed a Z pack and prednisone taper 5 days ago, with last doses today -Lungs are clear on exam, CT chest negative, Flu A and B PCR is negative. No need to continue medications (4) Tobacco use disorder: 25 pack year history, smoking 1 PPD until recently. Currently on nicotine patch -Will continue. Interested in cessation, so counseling ordered Subjective Pt is laying in bed, sweaty, pale, appears tired. Says she feels better and that her back pain is better. Also says she did not have any BM since being here. Review of Systems Review of Systems: All systems reviewed & are unremarkable except as noted in HPI & below Constitutional: + fever, + chills and + fatigue Respiratory: no cough, no dyspnea and no pain on inspiration Cardiovascular: no chest pain and no palpitations Gastrointestinal: + abdominal pain (mild RUQ discomfort) and + constipation; no vomiting Physical Exam Physical Exam: General Appearance: young female laying in bed, ill appearing, pale, in no acute resp. distress Head: normocephalic, atraumatic Eyes: normal inspection, PERRL, EOMI, conjunctivae normal, anicteric sclerae ENT: external ear and nose normal, oropharynx normal Neck: trachea midline, no thyromegaly normal visual inspection Respiratory: normal respiratory effort, lungs clear to auscultation, no wheeze, rales, rhonchi Cardiovascular: regular rate, rhythm, no murmur, normal peripheral pulses. Vessels: no JVD or carotid bruit, mild pedal edema b/l Chest: normal inspection of chest Abdomen/GI: normal bowel sounds, soft, mildly tender to palp. in upper quadrants, mildly distended : CVA tenderness b/l (improved) Back: paraspinal tenderness to palp. b/l (improved) Extremities/MSK: no cyanosis or clubbing, extremities motor strength 5/5, moves all 4 extrem. spontaneously Neurologic: PERRL, EOMI, accommodation nl, no face palsy, no dysarthria, CN's II-XI intact bilaterally and moves all extremities Psychiatric: A+Ox3, euthymic Skin: no rashes, normal color, warm/dry Results & Data Vital Signs (Past 12 Hours) Vital Signs Temp Pulse Pulse Resp BP Pulse Ox 02/18/19 08:28 36.8 C 76 16 99/65 L 94 02/18/19 07:00 83 02/18/19 04:00 36.7 C 89 18 139/89 98 02/18/19 02:58 91 H 02/17/19 23:42 37.2 C 90 18 118/72 96 Laboratory Results 02/18/19 02/18/19 Range/Units 07:26 07:26 WBC 23.34 H (4.8-10.8) K/uL RBC 2.99 L (4.2-5.4) M/uL Hgb 8.8 L (12.0-16.0) g/dL Hct 26.3 L (37-47) % MCV 88.0 (80-100) fL MCH 29.4 (25-34) pg MCHC 33.5 (32-36) g/dL RDW Std Deviation 46.5 H (36.4-46.3) fL RDW Coeff of Erlinda 14.3 (11.5-14.5) % Plt Count 331 (130-400) K/uL MPV 9.4 (7.4-10.4) fL Sodium 139 (136-145) mmol/L Potassium 3.9 D (3.5-5.1) mmol/L Chloride 112 H (98-107) mmol/L Carbon Dioxide 21 (21-32) mmol/L Anion Gap 6.0 (3-11) BUN 13 (7-18) mg/dl Creatinine 1.07 (0.6-1.2) mg/dl Est Cr Clr Drug Dosing 70.7 ml/min Est GFR ( Amer) 75.2 Est GFR (Non-Af Amer) 64.9 BUN/Creatinine Ratio 12.2 (10-20) Glucose 89 (70-99) mg/dl Calcium 7.5 L (8.5-10.1) mg/dl Magnesium 1.8 (1.8-2.4) mg/dl Medications Administered Current Inpatient Medications Acetaminophen (Tylenol) 1,000 mg PO Q8H PRN PRN Reason: pain or fever Stop: 03/18/19 11:57 Last Admin: 02/18/19 07:36 Dose: 1,000 mg Documented by: Bisacodyl (Dulcolax) 5 mg PO DAILY PRN PRN Reason: Constipation Stop: 03/19/19 11:53 Sodium Chloride (Nss 1000ml) 1,000 mls @ 125 mls/hr IV .Q8H [facility] Stop: 03/18/19 11:49 Last Admin: 02/18/19 03:15 Dose: 125 mls/hr Documented by: Ceftriaxone Sodium 2,000 mg/ (Dextrose) 50 mls @ 100 mls/hr IV Q24H [facility]; Protocol Stop: 03/02/19 08:59 Last Infusion: 02/17/19 09:26 Dose: Infused Documented by: Ketorolac Tromethamine (Toradol) 15 mg IV Q6H PRN PRN Reason: Pain Stop: 02/18/19 10:23 Last Admin: 02/18/19 03:14 Dose: 15 mg Documented by: Lidocaine (Lidoderm 5%) 1 patch TD QAM [facility] Stop: 03/19/19 11:29 Last Admin: 02/17/19 12:30 Dose: 1 patch Documented by: Miscellaneous (Remove Nicoderm Patch) 1 ea N/A DAILY@0859 [facility] Stop: 03/20/19 08:58 Miscellaneous (Remove Lidoderm Patch) 1 ea N/A DAILY@2100 [facility] Stop: 03/19/19 20:59 Last Admin: 02/17/19 20:59 Dose: 1 ea Documented by: Nicotine (Nicoderm Cq) 21 mg TD QAM [facility] Stop: 03/19/19 08:59 Last Admin: 02/17/19 08:30 Dose: 21 mg Documented by: Ondansetron HCl (Zofran) 4 mg IV Q6H PRN PRN Reason: Nausea Stop: 03/18/19 11:20 Last Admin: 02/16/19 20:23 Dose: 4 mg Documented by: Polyethylene Glycol (Miralax Powder Packet) 17 gm PO DAILY PRN PRN Reason: Constipation Stop: 03/18/19 11:20 Tramadol HCl (Ultram) 50 mg PO Q6H PRN PRN Reason: Pain Stop: 03/18/19 12:31 Last Admin: 02/17/19 21:41 Dose: 50 mg Documented by:
[2019-02-18] MEDS: NICOTINE 21 MG/24 HR TDSY TD SCH (08:47)
[2019-02-18] MEDS ORDERED: PROMETHAZINE HCL 6.25 MG in SODIUM CHLORIDE 0.9% 50 ML IV PRN (08:48)
[2019-02-18] MEDS: LIDOCAINE 5% 1 PATCH TD SCH (08:48)
[2019-02-18] MEDS: CIPROFLOXACIN / D5W 400 MG/200 ML BAG IV SCH ×2 (09:47→21:53)
[2019-02-18] MEDS ORDERED: IBUPROFEN 200 MG TAB PO PRN (10:37)
[2019-02-18] MEDS: TRAMADOL HCL 50 MG TABLET PO PRN ×2 (14:07→21:59)
[2019-02-18] MEDS: POLYETHYLENE (MIRALAX) 17 GM PACK PO SCH (14:25)
[2019-02-18] MEDS: SODIUM CHLORIDE 0.65% NA SOLN 45 ML (OCEAN) SCH ×2 (14:25→21:52)
[2019-02-18] MEDS: bisacodyL 5 MG TABEC PO SCH (14:25)
[2019-02-18] MEDS: ACETAMINOPHEN 325 MG TAB PO PRN ×2 (14:56→23:19)
[2019-02-19] MEDS: TRAMADOL HCL 50 MG TABLET PO PRN (06:04)
[2019-02-19 06:46] LABS: Hematocrit (blood only) 27.7 % (37-47); Hemoglobin 9.4 g/dL (12.0-16.0); Mean Corpuscular Hemoglobin 29.9 pg (25-34); Mean Corpuscular Hgb Conc 33.9 g/dL (32-36); Mean Corpuscular Volume 88.2 fL (80-100); Mean Platelet Volume 9.1 fL (7.4-10.4); Platelet Count 461 K/uL (130-400); RDW Coefficient of Variation 14.2 % (11.5-14.5); RDW Standard Deviation 45.9 fL (36.4-46.3); Red Blood Count 3.14 M/uL (4.2-5.4); White Blood Count 17.35 K/uL (4.8-10.8)
[2019-02-19 07:16] LABS: BUN Creatinine Ratio 9.7 (10-20); Calcium 8.4 mg/dl (8.5-10.1); Creatinine Clr Calc Pharmacy 70.9 ml/min; Est GFR (African American) 76.1; Est GFR (Non-African American) 65.6; Magnesium 1.9 mg/dl (1.8-2.4); Potassium 3.7 mmol/L (3.5-5.1)
--- NOTE | 2019-02-19 07:32 | Hospitalist Progress Note ---
Date of Service February 19, 2019 Assessment & Plan (1) Pyelonephritis: E.coli Bacteremia This is a 39-year-old female with a PMH of chronic hepatitis C (s/p treatment?), mood disorder and history of IV drug abuse who presents with fever, chills and abdominal pain x10 days and was found to have acute pyelonephritis. Blood cltx positive for E.coli, sensitive to ceftriaxone and ciprofloxacin. -On admission: Temp of 37.9 C, normotensive, HR of 106, leukocytosis of 22K -Met sepsis criteria per CMS but non-toxic in appearance, lactic acid negative, BP normal. Will monitor closely and expand empiric abx coverage if needed -UA grossly abnormal. Urine culture - positive for E.coli, Was started on empiric Rocephin, then increased to 2g (02/17/19) -CT abd/pelvis with findings are most consistent with cystitis and bilateral ascending urinary tract infection/pyelonephritis. There are numerous (greater than 10) cortical hypodensities identified in both kidneys. These measure up to 1.9 cm, and although these may represent numerous and minimally complex cysts developing renal abscesses would be impossible to exclude. Clinical correlation will be required. Follow-up with urology is recommended. - Urology consulted - recommend long-term Abx treatment, at least 6 weeks and follow up CT in 2 weeks - Blood cltx (02/16/2019) positive for E.coli, started on empiric Rocephin on admission, increased dose to (2g),then switched to IV Ciprofloxacin (given renal cysts and poss. small abscesses), will be discharged on p.o. ciprofloxacin, for 4 weeks (further treatment per outpatient health care providers) - Transthoracic Echo (02/17/2019) to r/o endocarditis, negative for vegetations - Repeat blood cltx (02/17/2019) - NGTD - Continue pain control,will avoid narcotic medications as much as possible due to h/o heroin abuse - has lower and mid back pain b/l, provided lidocaine patch (2) Hypokalemia: - replete and monitor - goal K~4 Hypomagnesemia - replete and monitor -goal Mag ~2 Anemia - normocytic, Hgb 11.2 on admission - seems to have anemia of chronic disease - now Hgb decreased likely secondary to IVF/ dilutional - cont. to monitor (3) Recent URI: Prescribed a Z pack and prednisone taper 5 days ago (finished course) -Lungs are clear on exam, CT chest negative, Flu A and B PCR is negative. No need to continue medications (4) Tobacco use disorder: 25 pack year history, smoking 1 PPD until recently. Currently on nicotine patch -Will continue. Interested in cessation, so counseling ordered Subjective No acute events overnight, patient feels much better this morning. She is inquiring about going home. Denies any chest pain or shortness of breath, she has no issues ambulating, subjective fevers are down and also her back pain is much improved. She still has some abdominal bloating and constipation, encouraged bowel regimen. Update: Patient had bowel movement later today. Started a probiotic, encouraged patient to take probiotic as outpatient. Review of Systems Review of Systems: All systems reviewed & are unremarkable except as noted in HPI & below Constitutional: no fever and no chills Respiratory: no cough, no dyspnea and no pain on inspiration Cardiovascular: no chest pain and no palpitations Gastrointestinal: + abdominal pain (mild tenderness in upper quadrants) and + bloating; no nausea and no vomiting Physical Exam Physical Exam: General Appearance: young female sitting up in bed, in no acute distress Head: normocephalic, atraumatic Eyes: normal inspection, PERRL, EOMI, conjunctivae normal, anicteric sclerae ENT: external ear and nose normal, oropharynx normal Neck: trachea midline, no thyromegaly normal visual inspection Respiratory: normal respiratory effort, lungs clear to auscultation, no wheeze, rales, rhonchi Cardiovascular: regular rate, rhythm, no murmur, normal peripheral pulses. Vessels: no JVD or carotid bruit, mild pedal edema b/l Chest: normal inspection of chest Abdomen/GI: normal bowel sounds, soft, mildly tender to palp. in upper quadrants, mildly distended : CVA tenderness b/l (much improved) Back: paraspinal tenderness to palp. b/l (improved) Extremities/MSK: no cyanosis or clubbing, extremities motor strength 5/5, moves all 4 extrem. spontaneously Neurologic: PERRL, EOMI, accommodation nl, no face palsy, no dysarthria, CN's II-XI intact bilaterally and moves all extremities Psychiatric: A+Ox3, euthymic Skin: no rashes, normal color, warm/dry Results & Data Vital Signs (Past 12 Hours) Vital Signs Temp Pulse Pulse Resp BP Pulse Ox 02/19/19 07:09 37.2 C 84 16 116/72 95 02/19/19 04:33 37.1 C 69 16 119/64 96 02/19/19 00:26 75 02/18/19 23:01 37.3 C 94 H 16 123/80 96 Laboratory Results 02/19/19 02/19/19 02/18/19 Range/Units 06:32 06:32 07:26 WBC 17.35 H (4.8-10.8) K/uL RBC 3.14 L (4.2-5.4) M/uL Hgb 9.4 L (12.0-16.0) g/dL Hct 27.7 L (37-47) % MCV 88.2 (80-100) fL MCH 29.9 (25-34) pg MCHC 33.9 (32-36) g/dL RDW Std Deviation 45.9 (36.4-46.3) fL RDW Coeff of Erlinda 14.2 (11.5-14.5) % Plt Count 461 H (130-400) K/uL MPV 9.1 (7.4-10.4) fL Sodium 139 139 (136-145) mmol/L Potassium 3.7 3.9 D (3.5-5.1) mmol/L Chloride 109 H 112 H (98-107) mmol/L Carbon Dioxide 23 21 (21-32) mmol/L Anion Gap 7.0 6.0 (3-11) BUN 10 13 (7-18) mg/dl Creatinine 1.06 1.07 (0.6-1.2) mg/dl Est Cr Clr Drug Dosing 70.9 70.7 ml/min Est GFR ( Amer) 76.1 75.2 Est GFR (Non-Af Amer) 65.6 64.9 BUN/Creatinine Ratio 9.7 L 12.2 (10-20) Glucose 93 89 (70-99) mg/dl Calcium 8.4 L 7.5 L (8.5-10.1) mg/dl Magnesium 1.9 1.8 (1.8-2.4) mg/dl 02/18/19 Range/Units 07:26 WBC 23.34 H (4.8-10.8) K/uL RBC 2.99 L (4.2-5.4) M/uL Hgb 8.8 L (12.0-16.0) g/dL Hct 26.3 L (37-47) % MCV 88.0 (80-100) fL MCH 29.4 (25-34) pg MCHC 33.5 (32-36) g/dL RDW Std Deviation 46.5 H (36.4-46.3) fL RDW Coeff of Erlinda 14.3 (11.5-14.5) % Plt Count 331 (130-400) K/uL MPV 9.4 (7.4-10.4) fL Sodium (136-145) mmol/L Potassium (3.5-5.1) mmol/L Chloride (98-107) mmol/L Carbon Dioxide (21-32) mmol/L Anion Gap (3-11) BUN (7-18) mg/dl Creatinine (0.6-1.2) mg/dl Est Cr Clr Drug Dosing ml/min Est GFR ( Amer) Est GFR (Non-Af Amer) BUN/Creatinine Ratio (10-20) Glucose (70-99) mg/dl Calcium (8.5-10.1) mg/dl Magnesium (1.8-2.4) mg/dl Medications Administered Current Inpatient Medications Acetaminophen (Tylenol) 650 mg PO Q8H PRN PRN Reason: Pain Stop: 03/18/19 11:57 Last Admin: 02/18/19 23:19 Dose: 650 mg Documented by: Bisacodyl (Dulcolax) 5 mg PO DAILY [facility] Stop: 03/20/19 10:29 Last Admin: 02/18/19 14:25 Dose: 5 mg Documented by: Ciprofloxacin (Cipro) 400 mg in 200 mls @ 100 mls/hr IV Q12H [facility]; Protocol Stop: 03/04/19 08:59 Last Infusion: 02/19/19 00:16 Dose: Infused Documented by: Promethazine HCl 6.25 mg/ (Sodium Chloride) 50.25 mls @ 201 mls/hr IV Q6H PRN PRN Reason: Nausea And Vomiting Stop: 03/20/19 08:47 Ibuprofen (Advil) 200 mg PO Q6H PRN PRN Reason: Moderate Pain Stop: 03/20/19 10:36 Last Admin: 02/18/19 19:59 Dose: 200 mg Documented by: Lidocaine (Lidoderm 5%) 1 patch TD QAM [facility] Stop: 03/19/19 11:29 Last Admin: 02/18/19 08:48 Dose: Not Given Documented by: Miscellaneous (Remove Nicoderm Patch) 1 ea N/A DAILY@0859 [facility] Stop: 03/20/19 08:58 Last Admin: 02/18/19 08:47 Dose: 1 ea Documented by: Miscellaneous (Remove Lidoderm Patch) 1 ea N/A DAILY@2100 [facility] Stop: 03/19/19 20:59 Last Admin: 02/18/19 21:51 Dose: Not Given Documented by: Nicotine (Nicoderm Cq) 21 mg TD QAM [facility] Stop: 03/19/19 08:59 Last Admin: 02/18/19 08:47 Dose: 21 mg Documented by: Polyethylene Glycol (Miralax Powder Packet) 17 gm PO DAILY [facility] Stop: 03/20/19 10:29 Last Admin: 02/18/19 14:25 Dose: 17 gm Documented by: Sodium Chloride (Willacy Nasal) 1 sprays NA BID [facility] Stop: 03/20/19 10:29 Last Admin: 02/18/19 21:52 Dose: 1 sprays Documented by: Tramadol HCl (Ultram) 50 mg PO Q6H PRN PRN Reason: Pain Stop: 03/18/19 12:31 Last Admin: 02/19/19 06:04 Dose: 50 mg Documented by:
[2019-02-19] MEDS: ACETAMINOPHEN 325 MG TAB PO PRN (08:58)
[2019-02-19] MEDS: LIDOCAINE 5% 1 PATCH TD SCH (08:59)
[2019-02-19] MEDS: NICOTINE 21 MG/24 HR TDSY TD SCH (08:59)
[2019-02-19] MEDS: POLYETHYLENE (MIRALAX) 17 GM PACK PO SCH (08:59)
[2019-02-19] MEDS: CIPROFLOXACIN / D5W 400 MG/200 ML BAG IV SCH (09:00)
[2019-02-19] MEDS: SODIUM CHLORIDE 0.65% NA SOLN 45 ML (OCEAN) SCH (09:00)
[2019-02-19] MEDS: bisacodyL 5 MG TABEC PO SCH (09:00)
--- NOTE | 2019-02-19 13:34 | Discharge Summary ---
Date of Service February 19, 2019 Admission HPI Per Admitting Provider This is a 39-year-old female with a PMH of chronic hepatitis C, mood disorder and history of IV drug abuse who presents with fever, chills and abdominal pain x10 days. Symptoms were present 10 days ago but then improved for a few days and returned 2 days ago. Endorses fever, chills, right upper quadrant pain that is stabbing and constant in nature with radiation wrapping around to her upper right back. Also endorses nausea and decreased appetite but denies vomiting. Was started on prednisone taper and azithromycin for presumed respiratory infection 5 days ago and has 1 dose left of each. Denies lightheadedness, visual changes, chest pain, palpitations, shortness of breath, change of urinary frequency or urgency, hematuria, pyuria, diarrhea or constipation. Was seen for an acute care visit yesterday was diagnosed with costochondritis and viral URI. Endorses history of heroin and cocaine use but not since 2013. Was also on methadone for time but no longer taking it. Endorses using daily ibuprofen but denies any other regular medication use. Admission Exam Per Admitting Provider General Appearance: WD/WN, vitals as above, appears acutely ill with rigors, conversing easily, vital signs stable Head: normocephalic, atraumatic Eyes: normal inspection, PERRL, conjunctivae normal, anicteric sclerae ENT: external ear and nose normal, oropharynx normal Neck: trachea midline, no thyromegaly normal visual inspection Respiratory: normal respiratory effort, lungs clear to auscultation, no wheeze, rales, rhonchi. Normal insp/exp effort, no accessory muscle use Cardiovascular: regular rate, rhythm, no murmur, normal peripheral pulses. Vessels: no JVD or carotid bruit Chest: normal inspection of chest Abdomen/GI: normal bowel sounds, soft, RUQ pain, no guarding or hepatosplenomegaly : R CVA TTP. No L CVA TTP Extremities/Musculoskelatal: no cyanosis or clubbing, extremities motor strength 5/5 Neurologic: PERRL, EOMI, accommodation nl, no face palsy, no dysarthria, CN's II-XI intact bilaterally and moves all extremities Psychiatric: A+Ox3, anxious Skin: no rashes, normal color, warm/dry Principal Diagnosis E. coli bacteremia, pyelonephritis, renal cysts/abscesses Discharge Exam General Appearance: young female sitting up in bed, in no acute resp. distress Head: normocephalic, atraumatic Eyes: normal inspection, PERRL, EOMI, conjunctivae normal, anicteric sclerae ENT: external ear and nose normal, oropharynx normal Neck: trachea midline, no thyromegaly normal visual inspection Respiratory: normal respiratory effort, lungs clear to auscultation, no wheeze, rales, rhonchi Cardiovascular: regular rate, rhythm, no murmur, normal peripheral pulses. Vessels: no JVD or carotid bruit, mild pedal edema b/l Chest: normal inspection of chest Abdomen/GI: normal bowel sounds, soft, mildly tender to palp. in upper quadrants, mildly distended : CVA tenderness b/l (much improved) Back: paraspinal tenderness to palp. b/l (improved) Extremities/MSK: no cyanosis or clubbing, extremities motor strength 5/5, moves all 4 extrem. spontaneously Neurologic: PERRL, EOMI, accommodation nl, no face palsy, no dysarthria, CN's II-XI intact bilaterally and moves all extremities Psychiatric: A+Ox3, euthymic Skin: no rashes, normal color, warm/dry Discharge Data Allergies Allergy/AdvReac Type Severity Reaction Status Date / Time No Known Allergies Allergy Verified 02/16/19 08:06 Consultations 02/16/19 10:10 ED Decision to Admit Stat 02/17/19 08:00 Consult Urology Routine Ordered Studies 02/16/19 07:46 CT abd pelvis IV con only Stat CT chest w con Stat IMPRESSION: 1. Findings are most consistent with cystitis and bilateral ascending urinary tract infection/pyelonephritis. 2. There are numerous (greater than 10) cortical hypodensities identified in both kidneys. These measure up to 1.9 cm, and although these may represent numerous and minimally complex cysts developing renal abscesses would be impossible to exclude. Clinical correlation will be required. Follow-up with urology is recommended. 3. Left-sided nephrolithiasis. 4. Hepatomegaly and hepatic steatosis. 5. Mild splenomegaly. 6. There is no airspace consolidation or pleural effusion. 7. There are numerous ovoid posterior subpleural soft tissue nodules identified in the thoracic region as above. The location and appearance is most typical for nerve sheath tumors such as neurofibromas or schwannomas. 8. A moderate volume of free fluid in the cul-de-sac is nonspecific and may be within physiologic limits. 9. Question septate uterus. 10. Additional findings in full report. Hospital Course (1) Pyelonephritis: E.coli Bacteremia This is a 39-year-old female with a PMH of chronic hepatitis C (s/p treatment?), mood disorder and history of IV drug abuse who presents with fever, chills and abdominal pain x10 days and was found to have acute pyelonephritis. Blood cltx positive for E.coli, sensitive to ceftriaxone and ciprofloxacin. -On admission: Temp of 37.9 C, normotensive, HR of 106, leukocytosis of 22K -Met sepsis criteria per CMS but non-toxic in appearance, lactic acid negative, BP normal. Will monitor closely and expand empiric abx coverage if needed -UA grossly abnormal. Urine culture - positive for E.coli, Was started on empiric Rocephin, then increased to 2g (02/17/19) -CT abd/pelvis with findings are most consistent with cystitis and bilateral ascending urinary tract infection/pyelonephritis. There are numerous (greater than 10) cortical hypodensities identified in both kidneys. These measure up to 1.9 cm, and although these may represent numerous and minimally complex cysts developing renal abscesses would be impossible to exclude. Clinical correlation will be required. Follow-up with urology is recommended. - Urology consulted - recommend long-term Abx treatment, at least 6 weeks and follow up CT in 2 weeks - Blood cltx (02/16/2019) positive for E.coli, started on empiric Rocephin on admission, increased dose to (2g),then switched to IV Ciprofloxacin (given renal cysts and poss. small abscesses), will be discharged on p.o. ciprofloxacin, for 4 weeks (further treatment per outpatient health care providers) - Transthoracic Echo (02/17/2019) to r/o endocarditis, negative for vegetations - Repeat blood cltx (02/17/2019) - NGTD - Continue pain control,will avoid narcotic medications as much as possible due to h/o heroin abuse - has lower and mid back pain b/l, provided lidocaine patch (2) Hypokalemia: - replete and monitor - goal K~4 Hypomagnesemia - replete and monitor -goal Mag ~2 Anemia - normocytic, Hgb 11.2 on admission - seems to have anemia of chronic disease - now Hgb decreased likely secondary to IVF/ dilutional - cont. to monitor (3) Recent URI: Prescribed a Z pack and prednisone taper 5 days ago (finished course) -Lungs are clear on exam, CT chest negative, Flu A and B PCR is negative. No need to continue medications (4) Tobacco use disorder: 25 pack year history, smoking 1 PPD until recently. Currently on nicotine patch -Will continue. Interested in cessation, so counseling ordered Total Time Total Time Spent Total Time Spent (In Minutes): 40 Total Time Includes: Examination of the Patient, Discharge Planning, Medication Reconciliation and Communication With Other Providers Discharge Plan Discharge Items Patient Disposition: Home - Self-Care Reason For Visit: ACUTE PYELONEPHRITIS Discharge Diagnosis: E. coli bacteremia, pyelonephritis, renal cysts/abscesses Activity: As commented below Activity Comment: as tolerated, pace yourself, ask for help as needed Non-emergency contact: Primary Care Provider and Urologist Call non-emergency contact if: you have any medication questions, your symptoms worsen and your temperature is above 101 Follow-up/Referrals: Fernando Gudino, [Primary Care Provider] - 02/22/19 12:45 pm Diet: Regular Addtl Attending Provider Instructions: Follow-up with your primary care provider on February 22 at 12:45. Per urology recommendation, you should take ciprofloxacin for at least 4 weeks. Take the first dose this evening. You should follow-up with urology, they will contact you about the appointment. You can take probiotics while on antibiotics (ciprofloxacin). You can take MiraLAX for constipation daily. You can take Tylenol for pain, 1000 mg 3 times a day. You can also take Advil 200 mg every 4-6 hours. Recommend to use lidocaine patches on your back as needed, this can be obtained [id number], ([employer]). if your pain is still not controlled, you can take tramadol. You will need follow-up CT scan, in 2 weeks to monitor renal cysts/abscesses. Pending Studies at Discharge: No Stand-Alone Forms: Call Back Authorization, [facility] [employer], Smoking Cessation Medications and DC Order Prescriptions: New acetaminophen [Mapap (acetaminophen)] 325 mg Tablet 650 mg PO Q8H PRN (Reason: pain) 14 Days Qty: 30 RF: 0 ibuprofen 200 mg Tablet 200 mg PO Q6H PRN (Reason: pain) 14 Days Qty: 14 RF: 0 tramadol 50 mg Tablet 50 mg PO Q6H PRN (Reason: pain) 14 Days Qty: 14 RF: 0 polyethylene glycol 3350 [Miralax] 17 gram Powder In Packet 17 g PO DAILY 10 Days Qty: 10 RF: 0 ciprofloxacin HCl 500 mg tablet 500 mg PO Q12H 28 Days Qty: 56 RF: 0 Discontinued azithromycin [Zithromax Z-Rosendo] 250 mg Tablet 0 mg PO UD RF: 0 prednisone 5 mg Tablets,Dose Pack See Rx Instructions .ROUTE .COMPLEX RF: 0 Discharge Orders: Discharge Order (Routine); Ordered 02/19/19 Ordered By: Alfredo Velez Admission Data Admit Date/Time: 02/17/19 20:10 Attending Provider: Alfredo Velez Admit Provider: Katerine Silva Primary Care Provider: Fernando Gudino Other Providers: Katerine Silva ; Ant Romero
[2019-02-19] MEDS ORDERED: LACTOBACILLUS ACIDOPHILUS (FLORANEX) TAB PO SCH (17:00)
== END 2019-02-19 16:10 | disposition home or self-care (01) | DRG 690 ==
LOC: 2W 07:25 → ED 07:25 → SUATTDRO 10:23 → 2W 11:10